=== PATIENT | male | born 1955 | race Caucasian/White ===

== ENCOUNTER 2017-04-07 08:21 | Inpatient (IN) | payer MEDICARE ==
[~2017-04-07] VITALS: Ht 175.3 cm; Wt 100.5 kg
[~2017-04-07 08:21] MED LIST: ASPI-621 PO; ASPI325T80 PO; CARV12.52 PO; CARV3.122 PO; CINA30TA2 PO; CYCL5TAB PO; DOCU-131 PO; FLAX100029 PO; GABA300C10 PO; HYDR-3307 PO; IBUP-11 PO; LACT10SO28 PO; LANT1000 PO; METO25TA35 PO; METO50TA82 PO; MULT-31 PO; OMEG-120 PO; ROPI1TAB PO; SEVE800T8 PO; SIMV20TA3 PO; WARF5TAB PO-COUM
[2017-04-07 09:41] LABS: TROPONIN I 0.888 ng/mL (0.000-0.045)
[2017-04-07] MEDS ORDERED: SODIUM CHLORIDE FLUSH 10ML SYR IVF PRN (10:30)
[2017-04-07] MEDS: ENOXAPARIN 30 MG/0.3 ML SQ SCH (11:30)
[2017-04-07] MEDS: SEVELAMER 800MG TABLET PO SCH ×2 (12:00→17:57)
[2017-04-07] MEDS ORDERED: LACTULOSE 10 GM/15 ML UDC PO PRN (12:00)
[2017-04-07 12:13] LABS: MEAN CORPUSCULAR HEMOGLOBIN 29.7 pg (27.5-34.5); MEAN CORPUSCULAR HGB CONC 33.1 g/dL (33.2-36.2); MEAN CORPUSCULAR VOLUME 89.7 fL (81-97); MEAN PLATELET VOLUME 7.9 fL (7.4-10.4); PLATELET COUNT 227 x10^3/uL (130-400); RED BLOOD COUNT 3.31 x10^6/uL (4.38-5.82); RED CELL DISTRIBUTION WIDTH 15.8 % (9.4-14.8)
[2017-04-07 12:26] LABS: ANION GAP 10 mmol/L (5-15); CALCIUM 8.6 mg/dL (8.5-10.1); CHLORIDE 94 mmol/L (98-107); CREATININE 8.44 mg/dL (0.7-1.3)
[2017-04-07 12:33] LABS: TROPONIN I 0.986 ng/mL (0.000-0.045)
[2017-04-07 12:55] LABS: BASOPHILS # (AUTO) 0.05 x10^3/uL (0-0.1); BASOPHILS % (AUTO) 0 % (0-1); EOSINOPHILS # (AUTO) 0.06 x10^3/uL (0-0.4); EOSINOPHILS % (AUTO) 0 % (1-7); LYMPHOCYTES # (AUTO) 1.04 x10^3/uL (1-3.4); LYMPHOCYTES % (AUTO) 7 % (22-44); MD SCAN; MONOCYTES # (AUTO) 1.47 x10^3/uL (0.2-0.8); MONOCYTES % (AUTO) 10 % (2-9); NEUTROPHILS # (AUTO) 12.17 x10^3/uL (1.8-6.8); NEUTROPHILS % (AUTO) 82 % (42-75)
[2017-04-07] MEDS: HYDROcodone/APAP 5/325 TABLET PO PRN ×3 (15:31→22:42)
[2017-04-07 16:23] LABS: INTERNATIONAL NORMALIZED RATIO 1.13 (0.93-1.1); PROTHROMBIN TIME 11.6 Seconds (9.6-11.5)
[2017-04-07 17:05] VITALS: BP 107/71
[2017-04-07] MEDS ORDERED: WARFARIN 7.5 MG TABLET PO-COUM ONE (18:00)
[2017-04-07 20:37] VITALS: BP 118/81
[2017-04-07] MEDS: SIMVASTATIN 20 MG TABLET PO SCH (20:40)
[2017-04-07] MEDS: GABAPENTIN 300 MG CAPSULE PO SCH (20:40)
[2017-04-07] MEDS: ROPINIROLE 1MG TABLET PO SCH (20:40)
[2017-04-08 00:35] VITALS: BP 141/73
[2017-04-08] MEDS: HYDROcodone/APAP 5/325 TABLET PO PRN ×6 (02:01→19:37)
[2017-04-08 05:38] LABS: BASOPHILS # (AUTO) 0.04 x10^3/uL (0-0.1); BASOPHILS % (AUTO) 0 % (0-1); EOSINOPHILS # (AUTO) 0.11 x10^3/uL (0-0.4); EOSINOPHILS % (AUTO) 1 % (1-7); LYMPHOCYTES # (AUTO) 0.87 x10^3/uL (1-3.4); LYMPHOCYTES % (AUTO) 7 % (22-44); MD NO; MEAN CORPUSCULAR HEMOGLOBIN 29.6 pg (27.5-34.5); MEAN CORPUSCULAR HGB CONC 32.9 g/dL (33.2-36.2); MEAN CORPUSCULAR VOLUME 90.2 fL (81-97); MEAN PLATELET VOLUME 7.7 fL (7.4-10.4); MONOCYTES # (AUTO) 1.21 x10^3/uL (0.2-0.8); MONOCYTES % (AUTO) 10 % (2-9); NEUTROPHILS # (AUTO) 9.98 x10^3/uL (1.8-6.8); NEUTROPHILS % (AUTO) 82 % (42-75); PLATELET COUNT 230 x10^3/uL (130-400); RED BLOOD COUNT 3.71 x10^6/uL (4.38-5.82); RED CELL DISTRIBUTION WIDTH 15.5 % (9.4-14.8)
[2017-04-08 05:44] LABS: INTERNATIONAL NORMALIZED RATIO 1.13 (0.93-1.1); PROTHROMBIN TIME 11.6 Seconds (9.6-11.5)
[2017-04-08 05:51] LABS: ALBUMIN 3.1 g/dL (3.4-5.0); ANION GAP 9 mmol/L (5-15); CHLORIDE 95 mmol/L (98-107)
[2017-04-08 05:56] LABS: ALANINE AMINOTRANSFERASE 24 U/L (12-78); ALKALINE PHOSPHATASE 125 U/L (45-117); BILIRUBIN,TOTAL 0.7 mg/dL (0.2-1.0); CREATININE 6.46 mg/dL (0.7-1.3); TOTAL PROTEIN 7.8 g/dL (6.4-8.2)
[2017-04-08 07:35] VITALS: BP 123/66
[2017-04-08] MEDS ORDERED: MULTIVITAMINS/MINERALS TABLET PO SCH (09:00)
[2017-04-08] MEDS: SEVELAMER 800MG TABLET PO SCH ×3 (09:31→17:47)
[2017-04-08] MEDS: DOCUSATE 100 MG CAPSULE PO SCH (10:02)
[2017-04-08] MEDS: CINACALCET 30 MG TABLET PO SCH (10:02)
[2017-04-08] MEDS: MULTIVITAMINS/MINERALS TABLET PO SCH (10:02)
[2017-04-08] MEDS: ASPIRIN 81 MG TABLET EC PO SCH (10:02)
[2017-04-08] MEDS: ENOXAPARIN 30 MG/0.3 ML SQ SCH (10:03)
[2017-04-08] MEDS ORDERED: NEOSPORIN OINT. PKT 1 PACKET TP PRN (13:30)
[2017-04-08 14:17] VITALS: BP 90/59
[2017-04-08] MEDS ORDERED: SODIUM CHLORIDE 0.9% 1,000 ML IV SCH (14:30)
[2017-04-08 14:52] LABS: BASOPHILS # (AUTO) 0.04 x10^3/uL (0-0.1); BASOPHILS % (AUTO) 0 % (0-1); EOSINOPHILS # (AUTO) 0.14 x10^3/uL (0-0.4); EOSINOPHILS % (AUTO) 1 % (1-7); LYMPHOCYTES # (AUTO) 0.76 x10^3/uL (1-3.4); LYMPHOCYTES % (AUTO) 6 % (22-44); MD NO; MEAN CORPUSCULAR HEMOGLOBIN 29.6 pg (27.5-34.5); MEAN CORPUSCULAR HGB CONC 32.8 g/dL (33.2-36.2); MEAN CORPUSCULAR VOLUME 90.4 fL (81-97); MEAN PLATELET VOLUME 7.4 fL (7.4-10.4); MONOCYTES # (AUTO) 1.15 x10^3/uL (0.2-0.8); MONOCYTES % (AUTO) 10 % (2-9); NEUTROPHILS # (AUTO) 9.76 x10^3/uL (1.8-6.8); NEUTROPHILS % (AUTO) 82 % (42-75); PLATELET COUNT 232 x10^3/uL (130-400); RED BLOOD COUNT 3.65 x10^6/uL (4.38-5.82); RED CELL DISTRIBUTION WIDTH 16.1 % (9.4-14.8)
[2017-04-08 15:02] LABS: ANION GAP 8 mmol/L (5-15); CALCIUM 9.2 mg/dL (8.5-10.1); CHLORIDE 93 mmol/L (98-107); CREATININE 7.19 mg/dL (0.7-1.3)
[2017-04-08] MEDS: SODIUM CHLORIDE 0.9% 1,000 ML IV SCH (15:26)
[2017-04-08 16:24] VITALS: BP 124/82
[2017-04-08 16:35] LABS: MICROSCOPIC AUTO
[2017-04-08] MEDS ORDERED: CEFTRIAXONE PMX 2GM/50ML 50 ML IV SCH (17:00)
[2017-04-08] MEDS ORDERED: WARFARIN 10 MG TABLET PO-COUM ONE (18:00)
[2017-04-08 19:33] VITALS: BP 99/67
[2017-04-08] MEDS: GABAPENTIN 300 MG CAPSULE PO SCH (19:38)
[2017-04-08] MEDS: ROPINIROLE 1MG TABLET PO SCH (19:38)
[2017-04-08] MEDS: SIMVASTATIN 20 MG TABLET PO SCH (19:38)
[2017-04-09] VITALS (10 sets, daily range): BP systolic 74–138; BP diastolic 55–111
[2017-04-09] MEDS: HYDROcodone/APAP 5/325 TABLET PO PRN ×5 (01:16→20:40)
[2017-04-09] MEDS ORDERED: SODIUM CHLORIDE 0.9%, 500ML IVBOLUS ONE (03:00)
[2017-04-09 04:40] LABS: BASOPHILS # (AUTO) 0.06 x10^3/uL (0-0.1); BASOPHILS % (AUTO) 0 % (0-1); EOSINOPHILS # (AUTO) 0.12 x10^3/uL (0-0.4); EOSINOPHILS % (AUTO) 1 % (1-7); LYMPHOCYTES % (AUTO) 4 % (22-44); MD NO; MEAN CORPUSCULAR HEMOGLOBIN 29.3 pg (27.5-34.5); MEAN CORPUSCULAR HGB CONC 32.9 g/dL (33.2-36.2); MEAN PLATELET VOLUME 8.1 fL (7.4-10.4); MONOCYTES # (AUTO) 1.16 x10^3/uL (0.2-0.8); MONOCYTES % (AUTO) 8 % (2-9); NEUTROPHILS # (AUTO) 12.67 x10^3/uL (1.8-6.8); NEUTROPHILS % (AUTO) 87 % (42-75); PLATELET COUNT 226 x10^3/uL (130-400); RED BLOOD COUNT 3.47 x10^6/uL (4.38-5.82); RED CELL DISTRIBUTION WIDTH 15.9 % (9.4-14.8)
[2017-04-09 04:43] LABS: INTERNATIONAL NORMALIZED RATIO 1.34 (0.93-1.1); PROTHROMBIN TIME 13.7 Seconds (9.6-11.5)
[2017-04-09 04:50] LABS: ALANINE AMINOTRANSFERASE 21 U/L (12-78); ALBUMIN 2.7 g/dL (3.4-5.0); ANION GAP 10 mmol/L (5-15); CALCIUM 9.3 mg/dL (8.5-10.1); CHLORIDE 94 mmol/L (98-107); CREATININE 7.57 mg/dL (0.7-1.3)
[2017-04-09 04:52] LABS: IRON LEVEL 18 mcg/dL (65-175)
[2017-04-09 04:53] LABS: ALKALINE PHOSPHATASE 106 U/L (45-117); BILIRUBIN,TOTAL 0.7 mg/dL (0.2-1.0); TOTAL PROTEIN 7.1 g/dL (6.4-8.2)
[2017-04-09 04:54] LABS: % IRON SATURATION 10 % (20-55); TOTAL IRON BINDING CAPACITY 182 mcg/dL (250-450)
[2017-04-09] MEDS: DOCUSATE 100 MG CAPSULE PO SCH (08:53)
[2017-04-09] MEDS: MULTIVITAMINS/MINERALS TABLET PO SCH (08:53)
[2017-04-09] MEDS: ASPIRIN 81 MG TABLET EC PO SCH (08:53)
[2017-04-09] MEDS: SEVELAMER 800MG TABLET PO SCH ×3 (08:53→17:51)
[2017-04-09] MEDS: CINACALCET 30 MG TABLET PO SCH (08:53)
[2017-04-09] MEDS: ENOXAPARIN 30 MG/0.3 ML SQ SCH (08:54)
[2017-04-09] MEDS ORDERED: PHARMACOKINETIC MONITORING MC PRN (10:00)
[2017-04-09] MEDS ORDERED: VANCOMYCIN PER PHARMACY MC PRN (10:00)
[2017-04-09 10:17] LABS: HCT (SEDRATE) 30.1 % (39.2-51.8)
[2017-04-09] MEDS: CEFEPIME 2 GM in DEXTROSE 5% 100 ML IV SCH (10:28)
[2017-04-09] MEDS ORDERED: VANCOMYCIN 2,000 MG in SODIUM CHLORIDE 0.9% 500 ML IV ONE (11:00)
[2017-04-09] MEDS ORDERED: ACETAMINOPHEN 325 MG TABLET ONE (12:32)
[2017-04-09] MEDS: ACETAMINOPHEN 325 MG TABLET PO PRN (12:38)
[2017-04-09] MEDS: OXYcodone IR 5MG TABLET PO PRN (16:41)
[2017-04-09] MEDS: MORPHINE SULFATE 4 MG/ML, 1ML IVPush PRN (17:51)
[2017-04-09] MEDS ORDERED: WARFARIN 10 MG TABLET PO-COUM ONE (18:00)
[2017-04-09] MEDS: ROPINIROLE 1MG TABLET PO SCH (20:41)
[2017-04-09] MEDS: SIMVASTATIN 20 MG TABLET PO SCH (20:41)
[2017-04-09] MEDS: GABAPENTIN 300 MG CAPSULE PO SCH (20:41)
[2017-04-10 00:56] VITALS: BP 121/81
[2017-04-10] MEDS: HYDROcodone/APAP 5/325 TABLET PO PRN ×5 (01:01→17:02)
[2017-04-10] MEDS: SODIUM CHLORIDE 0.9% 1,000 ML IV SCH (03:50)
[2017-04-10 05:57] LABS: INTERNATIONAL NORMALIZED RATIO 3.47 (0.93-1.1); PROTHROMBIN TIME 34.9 Seconds (9.6-11.5)
[2017-04-10 06:06] LABS: CHLORIDE 96 mmol/L (98-107)
[2017-04-10 06:34] LABS: ANION GAP 9 mmol/L (5-15); CALCIUM 9.6 mg/dL (8.5-10.1)
[2017-04-10 06:45] LABS: MEAN CORPUSCULAR HEMOGLOBIN 29.7 pg (27.5-34.5); MEAN CORPUSCULAR HGB CONC 33.1 g/dL (33.2-36.2); MEAN CORPUSCULAR VOLUME 89.9 fL (81-97); MEAN PLATELET VOLUME 8.1 fL (7.4-10.4); PLATELET COUNT 214 x10^3/uL (130-400); RED CELL DISTRIBUTION WIDTH 15.6 % (9.4-14.8)
[2017-04-10 07:18] LABS: BASOPHILS # (AUTO) 0.03 x10^3/uL (0-0.1); BASOPHILS % (AUTO) 0 % (0-1); EOSINOPHILS # (AUTO) 0.13 x10^3/uL (0-0.4); EOSINOPHILS % (AUTO) 1 % (1-7); LYMPHOCYTES # (AUTO) 1.24 x10^3/uL (1-3.4); LYMPHOCYTES % (AUTO) 8 % (22-44); MD SCAN; MONOCYTES # (AUTO) 1.45 x10^3/uL (0.2-0.8); MONOCYTES % (AUTO) 10 % (2-9); NEUTROPHILS # (AUTO) 12.45 x10^3/uL (1.8-6.8); NEUTROPHILS % (AUTO) 81 % (42-75)
[2017-04-10] MEDS: ENOXAPARIN 30 MG/0.3 ML SQ SCH (09:00)
[2017-04-10 09:06] VITALS: BP 101/64
[2017-04-10] MEDS: MULTIVITAMINS/MINERALS TABLET PO SCH (09:08)
[2017-04-10] MEDS: CYCLOBENZAPRINE 10 MG TABLET PO PRN (09:09)
[2017-04-10] MEDS: ASPIRIN 81 MG TABLET EC PO SCH (09:09)
[2017-04-10] MEDS: CINACALCET 30 MG TABLET PO SCH (09:09)
[2017-04-10] MEDS: DOCUSATE 100 MG CAPSULE PO SCH (09:09)
[2017-04-10] MEDS: SEVELAMER 800MG TABLET PO SCH ×3 (09:09→17:02)
[2017-04-10] MEDS: CEFEPIME 2 GM in DEXTROSE 5% 100 ML IV SCH (10:30)
[2017-04-10 16:57] VITALS: BP 110/75
[2017-04-10] MEDS ORDERED: WARFARIN 5 MG TABLET PO-COUM ONE (18:00)
[2017-04-10 19:29] VITALS: BP 128/82
[2017-04-10] MEDS: GABAPENTIN 300 MG CAPSULE PO SCH (20:40)
[2017-04-10] MEDS: SIMVASTATIN 20 MG TABLET PO SCH (20:40)
[2017-04-10] MEDS: ROPINIROLE 1MG TABLET PO SCH (20:40)
[2017-04-11 01:28] VITALS: BP 118/78
[2017-04-11] MEDS: HYDROcodone/APAP 5/325 TABLET PO PRN ×5 (01:51→18:11)
[2017-04-11 06:08] LABS: BASOPHILS # (AUTO) 0.05 x10^3/uL (0-0.1); BASOPHILS % (AUTO) 0 % (0-1); EOSINOPHILS # (AUTO) 0.23 x10^3/uL (0-0.4); EOSINOPHILS % (AUTO) 1 % (1-7); LYMPHOCYTES # (AUTO) 1.13 x10^3/uL (1-3.4); LYMPHOCYTES % (AUTO) 7 % (22-44); MD NO; MEAN CORPUSCULAR HEMOGLOBIN 29.9 pg (27.5-34.5); MEAN CORPUSCULAR HGB CONC 33.4 g/dL (33.2-36.2); MEAN CORPUSCULAR VOLUME 89.3 fL (81-97); MEAN PLATELET VOLUME 7.7 fL (7.4-10.4); MONOCYTES # (AUTO) 1.39 x10^3/uL (0.2-0.8); MONOCYTES % (AUTO) 9 % (2-9); NEUTROPHILS # (AUTO) 13.38 x10^3/uL (1.8-6.8); NEUTROPHILS % (AUTO) 83 % (42-75); PLATELET COUNT 234 x10^3/uL (130-400); RED CELL DISTRIBUTION WIDTH 16.3 % (9.4-14.8)
[2017-04-11 06:22] LABS: ANION GAP 10 mmol/L (5-15); CHLORIDE 93 mmol/L (98-107)
[2017-04-11 06:31] LABS: CALCIUM 10.2 mg/dL (8.5-10.1); CREATININE 7.57 mg/dL (0.7-1.3); VANCOMYCIN,RANDOM 17.4 mcg/mL
[2017-04-11 07:45] LABS: INTERNATIONAL NORMALIZED RATIO 7.34 (0.93-1.1); PROTHROMBIN TIME 72.7 Seconds (9.6-11.5)
[2017-04-11 08:03] VITALS: BP 92/62
[2017-04-11] MEDS: CINACALCET 30 MG TABLET PO SCH (08:10)
[2017-04-11] MEDS: SEVELAMER 800MG TABLET PO SCH ×3 (08:10→18:08)
[2017-04-11] MEDS ORDERED: HEPARIN 5,000 UNITS/ML, 1ML SQ SCH (11:30)
[2017-04-11] MEDS ORDERED: PHYTONADIONE 5 MG TABLET PO ONE (12:00)
[2017-04-11] MEDS: ASPIRIN 81 MG TABLET EC PO SCH (12:51)
[2017-04-11] MEDS: DOCUSATE 100 MG CAPSULE PO SCH (12:51)
[2017-04-11] MEDS: MULTIVITAMINS/MINERALS TABLET PO SCH (12:51)
[2017-04-11] MEDS: CYCLOBENZAPRINE 10 MG TABLET PO PRN (13:28)
[2017-04-11 14:34] VITALS: BP 112/63
[2017-04-11] MEDS ORDERED: KETOROLAC 30 MG/1 ML IVPush ONE (15:30)
[2017-04-11 19:03] VITALS: BP 136/81
[2017-04-11] MEDS: SIMVASTATIN 20 MG TABLET PO SCH (20:54)
[2017-04-11] MEDS: GABAPENTIN 300 MG CAPSULE PO SCH (20:55)
[2017-04-11] MEDS: ROPINIROLE 1MG TABLET PO SCH (20:55)
[2017-04-11] MEDS ORDERED: VANCOMYCIN 2,000 MG in SODIUM CHLORIDE 0.9% 500 ML IV ONE (21:00)
[2017-04-12 01:52] VITALS: BP 97/65
[2017-04-12] MEDS: OXYcodone IR 5MG TABLET PO PRN ×2 (05:29→23:48)
[2017-04-12 06:06] LABS: INTERNATIONAL NORMALIZED RATIO 4.69 (0.93-1.1); PROTHROMBIN TIME 46.9 Seconds (9.6-11.5)
[2017-04-12 06:25] LABS: BASOPHILS # (AUTO) 0.07 x10^3/uL (0-0.1); BASOPHILS % (AUTO) 1 % (0-1); EOSINOPHILS # (AUTO) 0.33 x10^3/uL (0-0.4); EOSINOPHILS % (AUTO) 3 % (1-7); LYMPHOCYTES # (AUTO) 0.92 x10^3/uL (1-3.4); LYMPHOCYTES % (AUTO) 8 % (22-44); MD NO; MEAN CORPUSCULAR HEMOGLOBIN 29.7 pg (27.5-34.5); MEAN CORPUSCULAR VOLUME 90.1 fL (81-97); MEAN PLATELET VOLUME 8.2 fL (7.4-10.4); MONOCYTES # (AUTO) 1.15 x10^3/uL (0.2-0.8); MONOCYTES % (AUTO) 10 % (2-9); NEUTROPHILS # (AUTO) 9.12 x10^3/uL (1.8-6.8); NEUTROPHILS % (AUTO) 79 % (42-75); PLATELET COUNT 244 x10^3/uL (130-400); RED BLOOD COUNT 3.33 x10^6/uL (4.38-5.82); RED CELL DISTRIBUTION WIDTH 15.9 % (9.4-14.8)
[2017-04-12 06:34] LABS: ANION GAP 6 mmol/L (5-15); CALCIUM 9.1 mg/dL (8.5-10.1); CHLORIDE 99 mmol/L (98-107)
[2017-04-12 06:35] LABS: CREATININE 5.76 mg/dL (0.7-1.3)
[2017-04-12 08:18] VITALS: BP 94/59
[2017-04-12] MEDS: WARFARIN MECH. VALVE PROTOCOL 2.5 to 3.5 XX SCH (09:00)
[2017-04-12] MEDS: CINACALCET 30 MG TABLET PO SCH (09:17)
[2017-04-12] MEDS: DOCUSATE 100 MG CAPSULE PO SCH (09:17)
[2017-04-12] MEDS: MULTIVITAMINS/MINERALS TABLET PO SCH (09:17)
[2017-04-12] MEDS: ASPIRIN 81 MG TABLET EC PO SCH (09:17)
[2017-04-12] MEDS: SEVELAMER 800MG TABLET PO SCH ×3 (09:18→17:33)
[2017-04-12] MEDS: CYCLOBENZAPRINE 10 MG TABLET PO PRN (11:25)
[2017-04-12] MEDS: ROPINIROLE 1MG TABLET PO SCH (12:22)
[2017-04-12] MEDS: HYDROcodone/APAP 5/325 TABLET PO PRN ×2 (13:29→21:30)
[2017-04-12 13:37] VITALS: BP 124/80
[2017-04-12] MEDS ORDERED: WARFARIN 5 MG TABLET PO-COUM SCH (18:00)
[2017-04-12 18:54] VITALS: BP 124/80
[2017-04-12] MEDS: SIMVASTATIN 20 MG TABLET PO SCH (21:30)
[2017-04-12] MEDS: GABAPENTIN 300 MG CAPSULE PO SCH (21:30)
[2017-04-12] MEDS: LINEZOLID PMX 600MG/300ML 300 ML IV SCH (21:36)
[2017-04-13] MEDS: HYDROcodone/APAP 5/325 TABLET PO PRN ×4 (01:40→20:03)
[2017-04-13 02:43] VITALS: BP 113/76
[2017-04-13 05:48] LABS: INTERNATIONAL NORMALIZED RATIO 4.97 (0.93-1.1); PROTHROMBIN TIME 49.6 Seconds (9.6-11.5)
[2017-04-13 07:06] VITALS: BP 125/84
[2017-04-13] MEDS: OXYcodone IR 5MG TABLET PO PRN ×2 (07:15→17:56)
[2017-04-13] MEDS: SEVELAMER 800MG TABLET PO SCH ×4 (08:00→17:54)
[2017-04-13] MEDS: WARFARIN MECH. VALVE PROTOCOL 2.5 to 3.5 XX SCH (09:00)
[2017-04-13] MEDS ORDERED: PROPOFOL 10 MG/ML, 20ML ONE (12:35)
[2017-04-13] MEDS: CINACALCET 30 MG TABLET PO SCH (13:43)
[2017-04-13] MEDS: DOCUSATE 100 MG CAPSULE PO SCH (13:43)
[2017-04-13] MEDS: MULTIVITAMINS/MINERALS TABLET PO SCH (13:43)
[2017-04-13] MEDS: LINEZOLID PMX 600MG/300ML 300 ML IV SCH (13:43)
[2017-04-13] MEDS: ASPIRIN 81 MG TABLET EC PO SCH (13:43)
[2017-04-13 13:58] VITALS: BP 125/84
[2017-04-13] MEDS: MORPHINE SULFATE 4 MG/ML, 1ML IVPush PRN (14:48)
[2017-04-13] MEDS ORDERED: AMLO5TAB2 PO (14:53)
[2017-04-13] MEDS ORDERED: METO25TA91 PO (14:53)
[2017-04-13] MEDS ORDERED: METOPROLOL TARTRATE 25 MG TABLET PO SCH (15:00)
[2017-04-13 15:35] VITALS: BP 104/73
[2017-04-13] MEDS: METOPROLOL TARTRATE 25 MG TABLET PO SCH (17:53)
[2017-04-13 18:52] VITALS: BP 111/76
[2017-04-13] MEDS: SIMVASTATIN 20 MG TABLET PO SCH (19:55)
[2017-04-13] MEDS: GABAPENTIN 300 MG CAPSULE PO SCH (19:55)
[2017-04-13] MEDS: ROPINIROLE 1MG TABLET PO SCH (19:55)
[2017-04-14] MEDS: HYDROcodone/APAP 5/325 TABLET PO PRN ×5 (00:53→18:22)
[2017-04-14 01:51] VITALS: BP 122/80
[2017-04-14] MEDS: LINEZOLID PMX 600MG/300ML 300 ML IV SCH ×2 (02:11→13:50)
[2017-04-14 04:21] LABS: INTERNATIONAL NORMALIZED RATIO 4.19 (0.93-1.1)
[2017-04-14] MEDS: METOPROLOL TARTRATE 25 MG TABLET PO SCH ×2 (05:39→18:22)
[2017-04-14 07:10] VITALS: BP 138/85
[2017-04-14] MEDS: SEVELAMER 800MG TABLET PO SCH ×3 (08:44→18:14)
[2017-04-14] MEDS: DOCUSATE 100 MG CAPSULE PO SCH (08:44)
[2017-04-14] MEDS: WARFARIN MECH. VALVE PROTOCOL 2.5 to 3.5 XX SCH (08:44)
[2017-04-14] MEDS: CINACALCET 30 MG TABLET PO SCH (08:44)
[2017-04-14] MEDS: MULTIVITAMINS/MINERALS TABLET PO SCH (08:44)
[2017-04-14] MEDS: ASPIRIN 81 MG TABLET EC PO SCH (08:44)
[2017-04-14 13:55] VITALS: BP 112/72
[2017-04-14] MEDS ORDERED: WARFARIN 2.5 MG TABLET PO-COUM SCH (18:00)
[2017-04-14 21:18] VITALS: BP 115/78
[2017-04-14] MEDS: ROPINIROLE 1MG TABLET PO SCH (21:22)
[2017-04-14] MEDS: SIMVASTATIN 20 MG TABLET PO SCH (21:22)
[2017-04-14] MEDS: GABAPENTIN 300 MG CAPSULE PO SCH (21:22)
[2017-04-15] MEDS: HYDROcodone/APAP 5/325 TABLET PO PRN ×5 (00:24→19:52)
[2017-04-15 00:56] VITALS: BP 110/72
[2017-04-15] MEDS: LINEZOLID PMX 600MG/300ML 300 ML IV SCH ×2 (01:46→14:35)
[2017-04-15 04:52] LABS: INTERNATIONAL NORMALIZED RATIO 4.21 (0.93-1.1); PROTHROMBIN TIME 42.2 Seconds (9.6-11.5)
[2017-04-15] MEDS: METOPROLOL TARTRATE 25 MG TABLET PO SCH ×2 (05:26→17:41)
[2017-04-15 07:26] VITALS: BP 138/83
[2017-04-15] MEDS: SEVELAMER 800MG TABLET PO SCH ×4 (08:46→17:42)
[2017-04-15] MEDS: MULTIVITAMINS/MINERALS TABLET PO SCH (08:47)
[2017-04-15] MEDS: DOCUSATE 100 MG CAPSULE PO SCH (08:47)
[2017-04-15] MEDS: WARFARIN MECH. VALVE PROTOCOL 2.5 to 3.5 XX SCH (08:48)
[2017-04-15] MEDS: ASPIRIN 81 MG TABLET EC PO SCH (08:48)
[2017-04-15] MEDS: CINACALCET 30 MG TABLET PO SCH (08:48)
[2017-04-15] MEDS: CHOLECALCIFEROL 1,000 UNIT TABLET PO SCH (10:04)
[2017-04-15 12:23] VITALS: BP 121/80
[2017-04-15 17:37] VITALS: BP 108/72
[2017-04-15] MEDS: ROPINIROLE 1MG TABLET PO SCH (17:41)
[2017-04-15] MEDS: GABAPENTIN 300 MG CAPSULE PO SCH (19:52)
[2017-04-15] MEDS: SIMVASTATIN 20 MG TABLET PO SCH (19:52)
[2017-04-15 20:32] VITALS: BP 109/71
[2017-04-16] VITALS (15 sets, daily range): BP systolic 107–154; BP diastolic 36–92
[2017-04-16] MEDS: LINEZOLID PMX 600MG/300ML 300 ML IV SCH (02:07)
[2017-04-16] MEDS: HYDROcodone/APAP 5/325 TABLET PO PRN ×4 (02:07→16:25)
[2017-04-16 06:03] LABS: INTERNATIONAL NORMALIZED RATIO 3.04 (0.93-1.1); PROTHROMBIN TIME 30.9 Seconds (9.6-11.5)
[2017-04-16] MEDS: METOPROLOL TARTRATE 25 MG TABLET PO SCH ×2 (06:06→18:00)
[2017-04-16] MEDS: SEVELAMER 800MG TABLET PO SCH ×4 (08:00→20:14)
[2017-04-16] MEDS: WARFARIN MECH. VALVE PROTOCOL 2.5 to 3.5 XX SCH (08:05)
[2017-04-16] MEDS ORDERED: CEFTAROLINE 400 MG in SODIUM CHLORIDE 0.9% 100 ML IV SCH (12:00)
[2017-04-16] MEDS: DOCUSATE 100 MG CAPSULE PO SCH (13:58)
[2017-04-16] MEDS: CINACALCET 30 MG TABLET PO SCH (13:58)
[2017-04-16] MEDS: MULTIVITAMINS/MINERALS TABLET PO SCH (13:58)
[2017-04-16] MEDS: CHOLECALCIFEROL 1,000 UNIT TABLET PO SCH (13:58)
[2017-04-16] MEDS: ASPIRIN 81 MG TABLET EC PO SCH (13:58)
[2017-04-16] MEDS: SODIUM CHLORIDE 0.9% IVPB SCH (15:01)
[2017-04-16] MEDS: DAPTOMYCIN IVPB SCH (15:01)
[2017-04-16] MEDS ORDERED: SODIUM CHLORIDE 0.9%, 500ML IVBOLUS ONE (18:00)
[2017-04-16] MEDS ORDERED: SODIUM CHLORIDE 0.9% 1,000ML IVBOLUS ONE (18:00)
[2017-04-16] MEDS ORDERED: WARFARIN 5 MG TABLET PO-COUM ONE (18:00)
[2017-04-16] MEDS: HYDROmorphone 1 MG/ML, 1ML IV PRN ×2 (20:19→23:30)
[2017-04-16] MEDS: GABAPENTIN 300 MG CAPSULE PO SCH (20:20)
[2017-04-16] MEDS: ROPINIROLE 1MG TABLET PO SCH (20:20)
[2017-04-16 20:31] LABS: HEMOGRAM NOTE RECHECKED
[2017-04-16] MEDS: OXYcodone IR 5MG TABLET PO PRN (22:07)
[2017-04-17] VITALS (15 sets, daily range): BP systolic 75–134; BP diastolic 40–101
[2017-04-17] MEDS ORDERED: NOVOSEVEN RT (FACTOR VIIA) RECOMB 1,000 MCG IVPush STA (00:59)
[2017-04-17] MEDS ORDERED: ACETAMINOPHEN 325 MG TABLET PO ONE (01:30)
[2017-04-17] MEDS ORDERED: LORATADINE 10 MG TABLET PO ONE (01:30)
[2017-04-17] MEDS ORDERED: PHYTONADIONE 10 MG/ML, 1ML IM ONE (01:30)
[2017-04-17] MEDS ORDERED: DIPHENHYDRAMINE 12.5MG/5ML, 10ML UDC PO ONE (01:30)
[2017-04-17] MEDS ORDERED: DIPHENHYDRAMINE 50 MG/ML, 1ML IVPush ONE (01:30)
[2017-04-17 01:37] LABS: INTERNATIONAL NORMALIZED RATIO 2.29 (0.93-1.1); PROTHROMBIN TIME 23.4 Seconds (9.6-11.5)
[2017-04-17] MEDS ORDERED: HYDROmorphone 2 MG/ML, 1ML ONE (02:07)
[2017-04-17] MEDS ORDERED: OMNIPAQUE 350 MG/ML, 100ML BOTTLE ONE (02:48)
[2017-04-17] MEDS ORDERED: LIDOCAINE 1%, 10ML ONE (03:06)
[2017-04-17] MEDS ORDERED: FLUMAZENIL 0.1 MG/1 ML, 5ML ONE (03:24)
[2017-04-17] MEDS ORDERED: FENTANYL PF 100 MCG/2ML ONE (03:24)
[2017-04-17] MEDS ORDERED: MIDAZOLAM 1 MG/ML, 5ML ONE (03:24)
[2017-04-17] MEDS ORDERED: NALOXONE 1 MG/ML, 2ML ONE (03:24)
[2017-04-17] MEDS ORDERED: VISIPAQUE 270 MG/ML, 50ML BOTTLE ONE (04:00)
[2017-04-17] MEDS ORDERED: VISIPAQUE 270 MG/ML, 150ML BOTTLE ONE (04:00)
[2017-04-17] MEDS: METOPROLOL TARTRATE 25 MG TABLET PO SCH ×2 (06:00→18:00)
[2017-04-17] MEDS: HYDROmorphone 2 MG/ML, 1ML IV PRN (06:01)
[2017-04-17] MEDS: SEVELAMER 800MG TABLET PO SCH ×3 (08:00→16:50)
[2017-04-17] MEDS: DOCUSATE 100 MG CAPSULE PO SCH (08:15)
[2017-04-17] MEDS: ASPIRIN 81 MG TABLET EC PO SCH (08:15)
[2017-04-17] MEDS: MULTIVITAMINS/MINERALS TABLET PO SCH (08:15)
[2017-04-17] MEDS: CHOLECALCIFEROL 1,000 UNIT TABLET PO SCH (08:16)
[2017-04-17] MEDS: CINACALCET 30 MG TABLET PO SCH (08:16)
[2017-04-17 08:43] LABS: MEAN CORPUSCULAR HGB CONC 34.1 g/dL (33.2-36.2); MEAN PLATELET VOLUME 7.9 fL (7.4-10.4); PLATELET COUNT 161 x10^3/uL (130-400); RED BLOOD COUNT 3.87 x10^6/uL (4.38-5.82); RED CELL DISTRIBUTION WIDTH 16.1 % (9.4-14.8)
[2017-04-17 09:16] LABS: MD YES
[2017-04-17 09:29] LABS: ALANINE AMINOTRANSFERASE 18 U/L (12-78); ANION GAP 10 mmol/L (5-15); CALCIUM 8.1 mg/dL (8.5-10.1); CHLORIDE 96 mmol/L (98-107); CREATININE 5.61 mg/dL (0.7-1.3)
[2017-04-17] MEDS ORDERED: NOREPINEPHRINE 4 MG in SODIUM CHLORIDE 0.9% 246 ML IV PRN (09:30)
[2017-04-17 09:31] LABS: ALKALINE PHOSPHATASE 81 U/L (45-117); BILIRUBIN,TOTAL 1.6 mg/dL (0.2-1.0); TOTAL PROTEIN 6.5 g/dL (6.4-8.2)
[2017-04-17 09:34] LABS: INTERNATIONAL NORMALIZED RATIO 1.29 (0.93-1.1); PROTHROMBIN TIME 13.3 Seconds (9.6-11.5)
[2017-04-17 09:59] LABS: BAND#(MANUAL) 0.25 x10^3/uL; BANDS%(MANUAL) 1 % (0-7); LYMPH#(MANUAL) 1.26 x10^3/uL (1-3.4); LYMPHS% (MANUAL) 5 % (22-44)
[2017-04-17 10:00] LABS: MONOS#(MANUAL) 1.76 x10^3/uL (0.3-2.7); MONOS% (MANUAL) 7 % (2-9); SEGS% (MANUAL) 87 % (42-75)
[2017-04-17 10:02] LABS: <PLT MORPHOLOGY> NORMAL PLT MORPH; ANISOCYTOSIS 1+; POLYCHROMASIA 1+
[2017-04-17] MEDS ORDERED: DAPTOMYCIN 800 MG in SODIUM CHLORIDE 0.9% 100 ML IV ONE (10:30)
[2017-04-17 11:27] LABS: <PLATELET ESTIMATE> ADEQUATE
[2017-04-17] MEDS ORDERED: WARFARIN 5 MG TABLET PO-COUM ONE (18:00)
[2017-04-17] MEDS: GABAPENTIN 300 MG CAPSULE PO SCH (21:33)
[2017-04-17] MEDS: ROPINIROLE 1MG TABLET PO SCH (21:33)
[2017-04-17] MEDS: HYDROcodone/APAP 5/325 TABLET PO PRN (22:48)
[2017-04-18] MEDS: HYDROcodone/APAP 5/325 TABLET PO PRN ×5 (04:23→21:58)
[2017-04-18 04:52] LABS: INTERNATIONAL NORMALIZED RATIO 1.22 (0.93-1.1); PROTHROMBIN TIME 12.6 Seconds (9.6-11.5)
[2017-04-18 04:57] LABS: ALBUMIN 2.7 g/dL (3.4-5.0); ANION GAP 11 mmol/L (5-15); CALCIUM 8.6 mg/dL (8.5-10.1); CHLORIDE 98 mmol/L (98-107)
[2017-04-18 05:02] LABS: ALANINE AMINOTRANSFERASE 17 U/L (12-78); ALKALINE PHOSPHATASE 82 U/L (45-117); CREATININE 4.94 mg/dL (0.7-1.3); TOTAL PROTEIN 6.4 g/dL (6.4-8.2)
[2017-04-18] MEDS: METOPROLOL TARTRATE 25 MG TABLET PO SCH ×2 (06:26→18:37)
[2017-04-18] MEDS: SEVELAMER 800MG TABLET PO SCH ×3 (08:00→18:36)
[2017-04-18] MEDS: CINACALCET 30 MG TABLET PO SCH (09:00)
[2017-04-18] MEDS: MULTIVITAMINS/MINERALS TABLET PO SCH (09:00)
[2017-04-18] MEDS: CHOLECALCIFEROL 1,000 UNIT TABLET PO SCH (09:00)
[2017-04-18] MEDS: DOCUSATE 100 MG CAPSULE PO SCH (09:00)
[2017-04-18 13:05] VITALS: BP 149/91
[2017-04-18] MEDS: INSULIN ASPART 100 UNITS/ML, PEN SQ-INSULIN SCH ×2 (16:00→21:00)
[2017-04-18 20:32] VITALS: BP_SYST 85; BP_SYST 87; BP_DIAS 40; BP_DIAS 65
[2017-04-18 21:55] VITALS: BP 94/46
[2017-04-18] MEDS: ROPINIROLE 1MG TABLET PO SCH (21:58)
[2017-04-18] MEDS: GABAPENTIN 300 MG CAPSULE PO SCH (21:58)
[2017-04-18] MEDS: SODIUM CHLORIDE 0.9% IVPB SCH (21:58)
[2017-04-18] MEDS: DAPTOMYCIN IVPB SCH (21:58)
[2017-04-19 02:00] VITALS: BP 106/66
[2017-04-19] MEDS: HYDROcodone/APAP 5/325 TABLET PO PRN ×3 (02:39→21:23)
[2017-04-19] MEDS: INSULIN ASPART 100 UNITS/ML, PEN SQ-INSULIN SCH ×4 (07:00→20:28)
[2017-04-19 07:32] LABS: MEAN CORPUSCULAR HEMOGLOBIN 30.3 pg (27.5-34.5); MEAN CORPUSCULAR HGB CONC 34.1 g/dL (33.2-36.2); MEAN CORPUSCULAR VOLUME 88.9 fL (81-97); MEAN PLATELET VOLUME 7.2 fL (7.4-10.4); PLATELET COUNT 199 x10^3/uL (130-400); RED BLOOD COUNT 2.84 x10^6/uL (4.38-5.82); RED CELL DISTRIBUTION WIDTH 16.5 % (9.4-14.8)
[2017-04-19] MEDS: SEVELAMER 800MG TABLET PO SCH ×3 (08:00→17:40)
[2017-04-19] MEDS: METOPROLOL TARTRATE 25 MG TABLET PO SCH ×2 (08:00→17:47)
[2017-04-19 09:10] LABS: BASOPHILS # (AUTO) 0.04 x10^3/uL (0-0.1); BASOPHILS % (AUTO) 0 % (0-1); EOSINOPHILS # (AUTO) 0.02 x10^3/uL (0-0.4); EOSINOPHILS % (AUTO) 0 % (1-7); LYMPHOCYTES # (AUTO) 1.17 x10^3/uL (1-3.4); LYMPHOCYTES % (AUTO) 4 % (22-44); MD SCAN; MONOCYTES # (AUTO) 2.34 x10^3/uL (0.2-0.8); MONOCYTES % (AUTO) 8 % (2-9); NEUTROPHILS # (AUTO) 24.46 x10^3/uL (1.8-6.8); NEUTROPHILS % (AUTO) 87 % (42-75)
[2017-04-19] MEDS: CHOLECALCIFEROL 1,000 UNIT TABLET PO SCH (12:28)
[2017-04-19] MEDS: CINACALCET 30 MG TABLET PO SCH (12:28)
[2017-04-19] MEDS: MULTIVITAMINS/MINERALS TABLET PO SCH (12:28)
[2017-04-19] MEDS: DOCUSATE 100 MG CAPSULE PO SCH ×2 (12:28→17:39)
[2017-04-19] MEDS: NOREPINEPHRINE 4 MG in SODIUM CHLORIDE 0.9% 246 ML IV PRN ×2 (13:09→18:24)
[2017-04-19] MEDS: ROPINIROLE 1MG TABLET PO SCH (20:27)
[2017-04-19] MEDS: GABAPENTIN 300 MG CAPSULE PO SCH (20:27)
[2017-04-19] MEDS: NOREPINEPHRINE 8 MG in SODIUM CHLORIDE 0.9% 242 ML IV PRN (23:44)
[2017-04-20 01:29] LABS: MEAN CORPUSCULAR HEMOGLOBIN 30.2 pg (27.5-34.5); MEAN CORPUSCULAR HGB CONC 33.6 g/dL (33.2-36.2); MEAN CORPUSCULAR VOLUME 89.8 fL (81-97); PLATELET COUNT 248 x10^3/uL (130-400); RED BLOOD COUNT 2.81 x10^6/uL (4.38-5.82); RED CELL DISTRIBUTION WIDTH 16.5 % (9.4-14.8)
[2017-04-20] MEDS ORDERED: VASOPRESSIN 100 UNIT in SODIUM CHLORIDE 0.9% 495 ML IV PRN (01:30)
[2017-04-20 01:38] LABS: ANION GAP 12 mmol/L (5-15); CALCIUM 9.6 mg/dL (8.5-10.1); CHLORIDE 97 mmol/L (98-107); CREATININE 5.59 mg/dL (0.7-1.3)
[2017-04-20 01:42] LABS: MD YES
[2017-04-20 01:44] LABS: ANISOCYTOSIS 1+; LYMPH#(MANUAL) 1.01 x10^3/uL (1-3.4); LYMPHS% (MANUAL) 3 % (22-44); MONOS#(MANUAL) 3.02 x10^3/uL (0.3-2.7); MONOS% (MANUAL) 9 % (2-9); POLYCHROMASIA 1+; SEG#(MANUAL) 29.57 x10^3/uL (1.8-6.8); SEGS% (MANUAL) 88 % (42-75)
[2017-04-20] MEDS: HYDROcodone/APAP 5/325 TABLET PO PRN (01:45)
[2017-04-20 01:46] LABS: <PLATELET ESTIMATE> ADEQUATE; <PLT MORPHOLOGY> NORMAL PLT MORPH
[2017-04-20] MEDS: HYDROmorphone 2 MG/ML, 1ML IV PRN (02:25)
[2017-04-20] MEDS: NOREPINEPHRINE 8 MG in SODIUM CHLORIDE 0.9% 242 ML IV PRN ×2 (03:23→14:11)
[2017-04-20] MEDS: METOPROLOL TARTRATE 25 MG TABLET PO SCH ×2 (06:00→17:48)
[2017-04-20] MEDS: INSULIN ASPART 100 UNITS/ML, PEN SQ-INSULIN SCH ×4 (06:39→21:00)
[2017-04-20] MEDS: CHOLECALCIFEROL 1,000 UNIT TABLET PO SCH (09:30)
[2017-04-20] MEDS: CINACALCET 30 MG TABLET PO SCH (09:30)
[2017-04-20] MEDS: SEVELAMER 800MG TABLET PO SCH ×3 (09:30→17:48)
[2017-04-20] MEDS: MULTIVITAMINS/MINERALS TABLET PO SCH (09:30)
[2017-04-20] MEDS: ROPINIROLE 1MG TABLET PO SCH (20:25)
[2017-04-20] MEDS: GABAPENTIN 300 MG CAPSULE PO SCH (20:25)
[2017-04-20] MEDS ORDERED: ONDANSETRON 2MG/ML, 2ML ONE (20:36)
[2017-04-20] MEDS: ONDANSETRON 2MG/ML, 2ML IVPush PRN (20:41)
[2017-04-20] MEDS: CEFTAROLINE 600 MG in SODIUM CHLORIDE 0.9% 100 ML IV SCH (23:05)
[2017-04-21] MEDS: ACETAMINOPHEN 325 MG TABLET PO PRN (00:55)
[2017-04-21 04:28] VITALS: BP 54/25
[2017-04-21] MEDS: METOPROLOL TARTRATE 25 MG TABLET PO SCH ×2 (06:00→18:45)
[2017-04-21] MEDS: INSULIN ASPART 100 UNITS/ML, PEN SQ-INSULIN SCH ×4 (08:00→20:54)
[2017-04-21] MEDS: SEVELAMER 800MG TABLET PO SCH ×3 (08:40→18:30)
[2017-04-21] MEDS: CINACALCET 30 MG TABLET PO SCH (08:57)
[2017-04-21] MEDS: MULTIVITAMINS/MINERALS TABLET PO SCH (08:57)
[2017-04-21] MEDS: CHOLECALCIFEROL 1,000 UNIT TABLET PO SCH (08:57)
[2017-04-21] MEDS: DOCUSATE 100 MG CAPSULE PO SCH (08:57)
[2017-04-21] MEDS ORDERED: ALBUTEROL SULFATE 2.5 MG/3 ML ONE (17:07)
[2017-04-21 18:30] LABS: CULTURE INDICATED? YES; MICROSCOPIC INDICATED
[2017-04-21] MEDS: ROPINIROLE 1MG TABLET PO SCH (20:53)
[2017-04-21] MEDS: GABAPENTIN 300 MG CAPSULE PO SCH (20:53)
[2017-04-21] MEDS: CEFTAROLINE 600 MG in SODIUM CHLORIDE 0.9% 100 ML IV SCH (23:48)
[2017-04-22 04:41] LABS: BASOPHILS # (AUTO) 0.06 x10^3/uL (0-0.1); BASOPHILS % (AUTO) 0 % (0-1); EOSINOPHILS # (AUTO) 0.09 x10^3/uL (0-0.4); EOSINOPHILS % (AUTO) 1 % (1-7); HCT (SEDRATE) 24.4 % (39.2-51.8); LYMPHOCYTES # (AUTO) 0.85 x10^3/uL (1-3.4); LYMPHOCYTES % (AUTO) 6 % (22-44); MD NO; MEAN CORPUSCULAR HEMOGLOBIN 30.2 pg (27.5-34.5); MEAN CORPUSCULAR VOLUME 91.6 fL (81-97); MEAN PLATELET VOLUME 7.3 fL (7.4-10.4); MONOCYTES % (AUTO) 8 % (2-9); NEUTROPHILS # (AUTO) 12.55 x10^3/uL (1.8-6.8); NEUTROPHILS % (AUTO) 86 % (42-75); PLATELET COUNT 214 x10^3/uL (130-400); RED BLOOD COUNT 2.67 x10^6/uL (4.38-5.82)
[2017-04-22 04:44] LABS: ALBUMIN 2.9 g/dL (3.4-5.0); ANION GAP 9 mmol/L (5-15); CALCIUM 9.3 mg/dL (8.5-10.1); CHLORIDE 98 mmol/L (98-107)
[2017-04-22 04:52] LABS: ALANINE AMINOTRANSFERASE 27 U/L (12-78); ALKALINE PHOSPHATASE 75 U/L (45-117); BILIRUBIN,TOTAL 1.7 mg/dL (0.2-1.0); CREATININE 6.19 mg/dL (0.7-1.3); TOTAL PROTEIN 7.3 g/dL (6.4-8.2)
[2017-04-22 05:26] LABS: SEDIMENTATION RATE 57 mm/hr (0-10)
[2017-04-22] MEDS: METOPROLOL TARTRATE 25 MG TABLET PO SCH (06:00)
[2017-04-22] MEDS: INSULIN ASPART 100 UNITS/ML, PEN SQ-INSULIN SCH ×4 (07:00→21:00)
[2017-04-22] MEDS: ACETAMINOPHEN 325 MG TABLET PO PRN ×2 (08:10→23:10)
[2017-04-22] MEDS: CHOLECALCIFEROL 1,000 UNIT TABLET PO SCH (08:45)
[2017-04-22] MEDS: MULTIVITAMINS/MINERALS TABLET PO SCH (08:45)
[2017-04-22] MEDS: DOCUSATE 100 MG CAPSULE PO SCH (08:45)
[2017-04-22] MEDS: CINACALCET 30 MG TABLET PO SCH (08:45)
[2017-04-22] MEDS: SEVELAMER 800MG TABLET PO SCH ×4 (08:46→17:36)
[2017-04-22 14:18] VITALS: BP 166/80
[2017-04-22] MEDS: CARVEDILOL 3.125 MG TABLET PO SCH (17:36)
[2017-04-22 20:15] VITALS: BP 114/53
[2017-04-22] MEDS: GABAPENTIN 300 MG CAPSULE PO SCH (21:39)
[2017-04-22] MEDS: ROPINIROLE 1MG TABLET PO SCH (21:39)
[2017-04-22] MEDS: CEFTAROLINE 600 MG in SODIUM CHLORIDE 0.9% 100 ML IV SCH (23:57)
[2017-04-23] VITALS (8 sets, daily range): BP systolic 88–123; BP diastolic 30–73
[2017-04-23 05:26] LABS: MEAN CORPUSCULAR HEMOGLOBIN 30.8 pg (27.5-34.5); MEAN CORPUSCULAR HGB CONC 33.3 g/dL (33.2-36.2); MEAN CORPUSCULAR VOLUME 92.7 fL (81-97); MEAN PLATELET VOLUME 7.6 fL (7.4-10.4); PLATELET COUNT 198 x10^3/uL (130-400); RED BLOOD COUNT 2.63 x10^6/uL (4.38-5.82); RED CELL DISTRIBUTION WIDTH 17.8 % (9.4-14.8)
[2017-04-23 05:40] LABS: CHLORIDE 96 mmol/L (98-107)
[2017-04-23 05:41] LABS: ALANINE AMINOTRANSFERASE 25 U/L (12-78); ALBUMIN 2.7 g/dL (3.4-5.0); ANION GAP 10 mmol/L (5-15); CALCIUM 9.2 mg/dL (8.5-10.1); CREATININE 7.13 mg/dL (0.7-1.3)
[2017-04-23 05:43] LABS: ALKALINE PHOSPHATASE 73 U/L (45-117); BILIRUBIN,TOTAL 1.6 mg/dL (0.2-1.0); TOTAL PROTEIN 6.9 g/dL (6.4-8.2)
[2017-04-23] MEDS: CARVEDILOL 3.125 MG TABLET PO SCH (05:46)
[2017-04-23 06:03] LABS: MD YES
[2017-04-23 06:04] LABS: BAND#(MANUAL) 0.14 x10^3/uL; BANDS%(MANUAL) 1 % (0-7); LYMPH#(MANUAL) 0.85 x10^3/uL (1-3.4); LYMPHS% (MANUAL) 6 % (22-44); MONOS#(MANUAL) 0.56 x10^3/uL (0.3-2.7); MONOS% (MANUAL) 4 % (2-9); NRBC % (MANUAL) 1 % (0-1); SEG#(MANUAL) 12.55 x10^3/uL (1.8-6.8); SEGS% (MANUAL) 89 % (42-75)
[2017-04-23 06:05] LABS: ANISOCYTOSIS 1+; POLYCHROMASIA 2+
[2017-04-23 06:06] LABS: <PLATELET ESTIMATE> ADEQUATE; <PLT MORPHOLOGY> NORMAL PLT MORPH; HYPOCHROMIA 1+
[2017-04-23] MEDS: INSULIN ASPART 100 UNITS/ML, PEN SQ-INSULIN SCH ×4 (07:00→21:00)
[2017-04-23] MEDS ORDERED: ALBUMIN HUMAN 25% 50 ML IV PRN (08:00)
[2017-04-23] MEDS: CHOLECALCIFEROL 1,000 UNIT TABLET PO SCH (08:04)
[2017-04-23] MEDS: MULTIVITAMINS/MINERALS TABLET PO SCH (08:04)
[2017-04-23] MEDS: DOCUSATE 100 MG CAPSULE PO SCH (08:05)
[2017-04-23] MEDS: CINACALCET 30 MG TABLET PO SCH (08:05)
[2017-04-23] MEDS: SEVELAMER 800MG TABLET PO SCH ×3 (08:06→17:47)
[2017-04-23] MEDS: ROPINIROLE 1MG TABLET PO SCH (21:56)
[2017-04-23] MEDS: GABAPENTIN 300 MG CAPSULE PO SCH (21:56)
[2017-04-24 00:53] VITALS: BP 123/46
[2017-04-24] MEDS: CEFTAROLINE 600 MG in SODIUM CHLORIDE 0.9% 100 ML IV SCH (01:55)
[2017-04-24 05:23] LABS: ALBUMIN 2.5 g/dL (3.4-5.0); ANION GAP 8 mmol/L (5-15); CALCIUM 9.2 mg/dL (8.5-10.1); CHLORIDE 97 mmol/L (98-107)
[2017-04-24 05:28] LABS: ALANINE AMINOTRANSFERASE 26 U/L (12-78); ALKALINE PHOSPHATASE 75 U/L (45-117); BILIRUBIN,TOTAL 1.9 mg/dL (0.2-1.0); CREATININE 5.59 mg/dL (0.7-1.3); TOTAL PROTEIN 6.8 g/dL (6.4-8.2)
[2017-04-24 05:31] LABS: MEAN CORPUSCULAR HEMOGLOBIN 30.6 pg (27.5-34.5); MEAN CORPUSCULAR HGB CONC 32.6 g/dL (33.2-36.2); MEAN CORPUSCULAR VOLUME 93.8 fL (81-97); MEAN PLATELET VOLUME 7.7 fL (7.4-10.4); PLATELET COUNT 209 x10^3/uL (130-400); RED BLOOD COUNT 2.81 x10^6/uL (4.38-5.82); RED CELL DISTRIBUTION WIDTH 18.9 % (9.4-14.8)
[2017-04-24 05:51] LABS: BASOPHILS # (AUTO) 0.06 x10^3/uL (0-0.1); BASOPHILS % (AUTO) 0 % (0-1); EOSINOPHILS # (AUTO) 0.12 x10^3/uL (0-0.4); EOSINOPHILS % (AUTO) 1 % (1-7); LYMPHOCYTES # (AUTO) 0.71 x10^3/uL (1-3.4); LYMPHOCYTES % (AUTO) 5 % (22-44); MD SCAN; MONOCYTES # (AUTO) 1.27 x10^3/uL (0.2-0.8); MONOCYTES % (AUTO) 9 % (2-9); NEUTROPHILS # (AUTO) 12.47 x10^3/uL (1.8-6.8); NEUTROPHILS % (AUTO) 85 % (42-75)
[2017-04-24] MEDS: INSULIN ASPART 100 UNITS/ML, PEN SQ-INSULIN SCH ×4 (07:00→22:19)
[2017-04-24 08:23] VITALS: BP 138/56
[2017-04-24] MEDS: CINACALCET 30 MG TABLET PO SCH (09:16)
[2017-04-24] MEDS: CHOLECALCIFEROL 1,000 UNIT TABLET PO SCH (09:16)
[2017-04-24] MEDS: MULTIVITAMINS/MINERALS TABLET PO SCH (09:17)
[2017-04-24] MEDS: DOCUSATE 100 MG CAPSULE PO SCH (09:17)
[2017-04-24] MEDS: SEVELAMER 800MG TABLET PO SCH ×3 (09:18→17:44)
[2017-04-24] MEDS: ACETAMINOPHEN 325 MG TABLET PO PRN (13:40)
[2017-04-24 14:20] VITALS: BP 116/78
[2017-04-24] MEDS: FERROUS GLUCONATE 324 MG TABLET PO SCH (17:44)
[2017-04-24 20:42] VITALS: BP 98/44
[2017-04-24] MEDS: GABAPENTIN 300 MG CAPSULE PO SCH (22:19)
[2017-04-24] MEDS: ROPINIROLE 1MG TABLET PO SCH (22:19)
[2017-04-25] MEDS: CEFTAROLINE 600 MG in SODIUM CHLORIDE 0.9% 100 ML IV SCH (00:09)
[2017-04-25 01:35] VITALS: BP 120/37
[2017-04-25 05:54] LABS: MEAN CORPUSCULAR HEMOGLOBIN 30.4 pg (27.5-34.5); MEAN CORPUSCULAR HGB CONC 32.5 g/dL (33.2-36.2); MEAN CORPUSCULAR VOLUME 93.6 fL (81-97); MEAN PLATELET VOLUME 7.7 fL (7.4-10.4); PLATELET COUNT 170 x10^3/uL (130-400); RED BLOOD COUNT 2.85 x10^6/uL (4.38-5.82); RED CELL DISTRIBUTION WIDTH 19.8 % (9.4-14.8)
[2017-04-25 06:03] LABS: ALBUMIN 2.5 g/dL (3.4-5.0); ANION GAP 7 mmol/L (5-15); CHLORIDE 95 mmol/L (98-107)
[2017-04-25 06:06] LABS: ALANINE AMINOTRANSFERASE 23 U/L (12-78); ALKALINE PHOSPHATASE 91 U/L (45-117); BILIRUBIN,TOTAL 1.9 mg/dL (0.2-1.0); CREATININE 6.73 mg/dL (0.7-1.3); TOTAL PROTEIN 6.6 g/dL (6.4-8.2)
[2017-04-25 06:15] LABS: BASOPHILS # (AUTO) 0.05 x10^3/uL (0-0.1); BASOPHILS % (AUTO) 0 % (0-1); EOSINOPHILS # (AUTO) 0.26 x10^3/uL (0-0.4); EOSINOPHILS % (AUTO) 2 % (1-7); LYMPHOCYTES # (AUTO) 1.07 x10^3/uL (1-3.4); LYMPHOCYTES % (AUTO) 8 % (22-44); MD SCAN; MONOCYTES # (AUTO) 1.38 x10^3/uL (0.2-0.8); MONOCYTES % (AUTO) 10 % (2-9); NEUTROPHILS # (AUTO) 11.02 x10^3/uL (1.8-6.8); NEUTROPHILS % (AUTO) 80 % (42-75)
[2017-04-25 06:54] VITALS: BP 84/40
[2017-04-25] MEDS: INSULIN ASPART 100 UNITS/ML, PEN SQ-INSULIN SCH ×4 (07:00→22:16)
[2017-04-25] MEDS: CINACALCET 30 MG TABLET PO SCH (08:04)
[2017-04-25] MEDS: MULTIVITAMINS/MINERALS TABLET PO SCH (08:04)
[2017-04-25] MEDS: CHOLECALCIFEROL 1,000 UNIT TABLET PO SCH (08:04)
[2017-04-25] MEDS: FERROUS GLUCONATE 324 MG TABLET PO SCH ×2 (08:04→17:20)
[2017-04-25] MEDS: SEVELAMER 800MG TABLET PO SCH ×3 (08:04→17:20)
[2017-04-25] MEDS: DOCUSATE 100 MG CAPSULE PO SCH (08:04)
[2017-04-25] MEDS: ACETAMINOPHEN 325 MG TABLET PO PRN ×2 (09:19→22:22)
[2017-04-25 12:33] VITALS: BP 108/55
[2017-04-25 19:23] VITALS: BP 108/59
[2017-04-25] MEDS: GABAPENTIN 300 MG CAPSULE PO SCH (22:15)
[2017-04-25] MEDS: ROPINIROLE 1MG TABLET PO SCH (22:16)
[2017-04-26] MEDS: CEFTAROLINE 600 MG in SODIUM CHLORIDE 0.9% 100 ML IV SCH (00:16)
[2017-04-26 00:31] VITALS: BP 88/57
[2017-04-26 03:00] LABS: BASOPHILS # (AUTO) 0.03 x10^3/uL (0-0.1); BASOPHILS % (AUTO) 0 % (0-1); EOSINOPHILS # (AUTO) 0.18 x10^3/uL (0-0.4); EOSINOPHILS % (AUTO) 2 % (1-7); LYMPHOCYTES % (AUTO) 7 % (22-44); MD NO; MEAN CORPUSCULAR HEMOGLOBIN 30.2 pg (27.5-34.5); MEAN CORPUSCULAR VOLUME 91.6 fL (81-97); MEAN PLATELET VOLUME 7.6 fL (7.4-10.4); MONOCYTES # (AUTO) 1.05 x10^3/uL (0.2-0.8); MONOCYTES % (AUTO) 9 % (2-9); NEUTROPHILS # (AUTO) 9.22 x10^3/uL (1.8-6.8); NEUTROPHILS % (AUTO) 82 % (42-75); PLATELET COUNT 161 x10^3/uL (130-400); RED BLOOD COUNT 2.94 x10^6/uL (4.38-5.82); RED CELL DISTRIBUTION WIDTH 20.5 % (9.4-14.8)
[2017-04-26 03:12] LABS: ANION GAP 9 mmol/L (5-15); CHLORIDE 98 mmol/L (98-107)
[2017-04-26 08:00] VITALS: BP 126/73
[2017-04-26] MEDS: INSULIN ASPART 100 UNITS/ML, PEN SQ-INSULIN SCH ×4 (08:32→21:00)
[2017-04-26] MEDS: FERROUS GLUCONATE 324 MG TABLET PO SCH ×2 (08:55→18:06)
[2017-04-26] MEDS: SEVELAMER 800MG TABLET PO SCH ×3 (08:56→18:06)
[2017-04-26] MEDS: DOCUSATE 100 MG CAPSULE PO SCH (08:56)
[2017-04-26] MEDS: MULTIVITAMINS/MINERALS TABLET PO SCH (08:56)
[2017-04-26] MEDS: CINACALCET 30 MG TABLET PO SCH (08:57)
[2017-04-26] MEDS: CHOLECALCIFEROL 1,000 UNIT TABLET PO SCH (08:57)
[2017-04-26] MEDS: ACETAMINOPHEN 325 MG TABLET PO PRN ×2 (10:55→22:08)
[2017-04-26 14:00] VITALS: BP 95/50
[2017-04-26 19:34] VITALS: BP 154/75
[2017-04-26] MEDS: ROPINIROLE 1MG TABLET PO SCH (20:57)
[2017-04-26] MEDS: GABAPENTIN 300 MG CAPSULE PO SCH (20:58)
[2017-04-27] MEDS: CEFTAROLINE 600 MG in SODIUM CHLORIDE 0.9% 100 ML IV SCH (00:24)
[2017-04-27 01:56] VITALS: BP 129/73
[2017-04-27] MEDS: ACETAMINOPHEN 325 MG TABLET PO PRN (05:34)
[2017-04-27 05:50] LABS: BASOPHILS # (AUTO) 0.05 x10^3/uL (0-0.1); BASOPHILS % (AUTO) 1 % (0-1); EOSINOPHILS # (AUTO) 0.22 x10^3/uL (0-0.4); EOSINOPHILS % (AUTO) 2 % (1-7); LYMPHOCYTES # (AUTO) 0.83 x10^3/uL (1-3.4); LYMPHOCYTES % (AUTO) 7 % (22-44); MD NO; MEAN CORPUSCULAR HEMOGLOBIN 30.6 pg (27.5-34.5); MEAN CORPUSCULAR HGB CONC 33.2 g/dL (33.2-36.2); MEAN CORPUSCULAR VOLUME 92.1 fL (81-97); MONOCYTES # (AUTO) 1.27 x10^3/uL (0.2-0.8); MONOCYTES % (AUTO) 11 % (2-9); NEUTROPHILS # (AUTO) 9.33 x10^3/uL (1.8-6.8); NEUTROPHILS % (AUTO) 80 % (42-75); PLATELET COUNT 146 x10^3/uL (130-400); RED BLOOD COUNT 2.88 x10^6/uL (4.38-5.82); RED CELL DISTRIBUTION WIDTH 19.6 % (9.4-14.8)
[2017-04-27 06:04] LABS: ALBUMIN 2.5 g/dL (3.4-5.0); ANION GAP 11 mmol/L (5-15); CALCIUM 8.5 mg/dL (8.5-10.1); CHLORIDE 92 mmol/L (98-107)
[2017-04-27 06:10] LABS: % IRON SATURATION 14 % (20-55); ALANINE AMINOTRANSFERASE 21 U/L (12-78); ALKALINE PHOSPHATASE 108 U/L (45-117); BILIRUBIN,TOTAL 1.7 mg/dL (0.2-1.0); CREATININE 6.08 mg/dL (0.7-1.3); IRON LEVEL 29 mcg/dL (65-175); TOTAL IRON BINDING CAPACITY 212 mcg/dL (250-450); TOTAL PROTEIN 6.7 g/dL (6.4-8.2)
[2017-04-27 07:23] VITALS: BP 124/69
[2017-04-27] MEDS: INSULIN ASPART 100 UNITS/ML, PEN SQ-INSULIN SCH ×2 (08:15→13:06)
[2017-04-27] MEDS: CHOLECALCIFEROL 1,000 UNIT TABLET PO SCH (08:16)
[2017-04-27] MEDS: ROPINIROLE 1MG TABLET PO SCH (08:16)
[2017-04-27] MEDS: DOCUSATE 100 MG CAPSULE PO SCH (08:17)
[2017-04-27] MEDS: MULTIVITAMINS/MINERALS TABLET PO SCH (08:17)
[2017-04-27] MEDS: FERROUS GLUCONATE 324 MG TABLET PO SCH (08:17)
[2017-04-27] MEDS: SEVELAMER 800MG TABLET PO SCH ×2 (08:17→13:01)
[2017-04-27] MEDS: CINACALCET 30 MG TABLET PO SCH (08:17)
[2017-04-27] MEDS ORDERED: ARANESP 60 MCG/ML **ESRD SQ SCH (09:00)
[2017-04-27] MEDS ORDERED: DAPT500V6 IV (12:56)
[2017-04-27] MEDS ORDERED: NEOM1PAC TP (12:56)
[2017-04-27] MEDS ORDERED: INSU100I18 SQ-INSULIN (12:56)
[2017-04-27] MEDS ORDERED: DARB60VI SQ (12:56)
[2017-04-27] MEDS ORDERED: CHOL10003 PO (12:56)
[2017-04-27] MEDS: ONDANSETRON 2MG/ML, 2ML IVPush PRN (13:01)
[2017-04-27 14:00] VITALS: BP 105/69
== END 2017-04-27 15:18 | DRG 270 ==
LOC: ED 10:14 → EDIP 10:15 → ED 10:40 → 5SO 14:29 → CCU 04-16 23:51 → 5SO 04-18 12:47 → CCU 04-19 09:38 → 4WST 04-22 12:43
PROVIDERS: ADMIT Internal Medicine; ATTEND Family Medicine
PROC: 5A1D70Z Performance of Urinary Filtration, Intermittent, Less than 6 Hours Per Day (ICD-10-PCS; 2017-04-07)
PROC: 5A1D70Z Performance of Urinary Filtration, Intermittent, Less than 6 Hours Per Day (ICD-10-PCS; 2017-04-09)
PROC: 5A1D70Z Performance of Urinary Filtration, Intermittent, Less than 6 Hours Per Day (ICD-10-PCS; 2017-04-11)
PROC: 5A1D70Z Performance of Urinary Filtration, Intermittent, Less than 6 Hours Per Day (ICD-10-PCS; 2017-04-13)
PROC: 5A1D70Z Performance of Urinary Filtration, Intermittent, Less than 6 Hours Per Day (ICD-10-PCS; 2017-04-14)
PROC: 30233N1 Transfusion of Nonautologous Red Blood Cells into Peripheral Vein, Percutaneous Approach (ICD-10-PCS; 2017-04-16)
PROC: 5A1D70Z Performance of Urinary Filtration, Intermittent, Less than 6 Hours Per Day (ICD-10-PCS; 2017-04-16)
PROC: 04LA3DZ Occlusion of Left Renal Artery with Intraluminal Device, Percutaneous Approach (ICD-10-PCS; principal; 2017-04-17)
PROC: 30233L1 Transfusion of Nonautologous Fresh Plasma into Peripheral Vein, Percutaneous Approach (ICD-10-PCS; 2017-04-17)
PROC: 30233K1 Transfusion of Nonautologous Frozen Plasma into Peripheral Vein, Percutaneous Approach (ICD-10-PCS; 2017-04-17)
PROC: 6A550Z2 Pheresis of Platelets, Single (ICD-10-PCS; 2017-04-17)
PROC: 5A1D70Z Performance of Urinary Filtration, Intermittent, Less than 6 Hours Per Day (ICD-10-PCS; 2017-04-17)
PROC: 5A1D70Z Performance of Urinary Filtration, Intermittent, Less than 6 Hours Per Day (ICD-10-PCS; 2017-04-18)
PROC: 02HV33Z Insertion of Infusion Device into Superior Vena Cava, Percutaneous Approach (ICD-10-PCS; 2017-04-19)
PROC: B548ZZA Ultrasonography of Superior Vena Cava, Guidance (ICD-10-PCS; 2017-04-19)
PROC: 5A1D70Z Performance of Urinary Filtration, Intermittent, Less than 6 Hours Per Day (ICD-10-PCS; 2017-04-20)
PROC: 5A1D70Z Performance of Urinary Filtration, Intermittent, Less than 6 Hours Per Day (ICD-10-PCS; 2017-04-23)
PROC: 5A1D70Z Performance of Urinary Filtration, Intermittent, Less than 6 Hours Per Day (ICD-10-PCS; 2017-04-25)
PROC: 5A1D70Z Performance of Urinary Filtration, Intermittent, Less than 6 Hours Per Day (ICD-10-PCS; 2017-04-27)
DX: T82.6XXA Infection and inflammatory reaction due to cardiac valve prosthesis, initial encounter (principal); A41.1 Sepsis due to other specified staphylococcus; R65.21 Severe sepsis with septic shock; J18.9 Pneumonia, unspecified organism; D68.9 Coagulation defect, unspecified; E11.21 Type 2 diabetes mellitus with diabetic nephropathy; I12.0 Hypertensive chronic kidney disease with stage 5 chronic kidney disease or end stage renal disease; D62 Acute posthemorrhagic anemia; N18.6 End stage renal disease; I33.0 Acute and subacute infective endocarditis; E87.1 Hypo-osmolality and hyponatremia; N25.81 Secondary hyperparathyroidism of renal origin; Q21.1 Atrial septal defect; W18.30XA Fall on same level, unspecified, initial encounter; E11.22 Type 2 diabetes mellitus with diabetic chronic kidney disease; B18.2 Chronic viral hepatitis C; B95.2 Enterococcus as the cause of diseases classified elsewhere; E78.5 Hyperlipidemia, unspecified; E86.0 Dehydration; I34.0 Nonrheumatic mitral (valve) insufficiency; I35.0 Nonrheumatic aortic (valve) stenosis; I48.0 Paroxysmal atrial fibrillation; K05.6 Periodontal disease, unspecified; M48.02 Spinal stenosis, cervical region; Z66 Do not resuscitate; Z79.01 Long term (current) use of anticoagulants; Z79.82 Long term (current) use of aspirin; Y93.89 Activity, other specified; Y92.89 Other specified places as the place of occurrence of the external cause; Y99.8 Other external cause status; Z79.899 Other long term (current) drug therapy; Z87.891 Personal history of nicotine dependence; Z91.19 Patient's noncompliance with other medical treatment and regimen; Z95.3 Presence of xenogenic heart valve; Z99.2 Dependence on renal dialysis; N30.90 Cystitis, unspecified without hematuria
CPT/HCPCS: 36415; 36569; 36600; 37244; 71010; 71045; 72050; 74174; 74176; 75894; 76937; 77001; 78580; 80048; 80053; 80202; 81001; 82306; 82533; 82550; 82728; 82803; 82962; 83540; 83550; 83605; 83735; 83970; 84100; 84145; 84439; 84443; 84484; 85014; 85018; 85025; 85379; 85384; 85610; 85651; 86140; 86704; 86706; 86850; 86900; 86923; 87040; 87070; 87077; 87081; 87086; 87186; 87205; 87340; 93005; 93306; 93312; 93321; 93325; 94640; 96374; C1894; J0696; J0712; J0878; J0882; J1170; J1650; J1815; J1885; J2020; J2250; J2405; J2704; J3010; J3370; J3430; J3490; J7189; P9047; Q9966; Q9967; A9540; A9558; C1751; C1769; C1773; C9898; J2310; J7030; J7040; J7050; P9016; P9017; P9035

== ENCOUNTER 2018-02-26 15:43 | Inpatient (IN) | payer MEDICARE ==
[~2018-02-26] VITALS: Ht 175.3 cm; Wt 104.3 kg
[~2018-02-26 15:43] MED LIST changes: +AMLO5TAB7 PO; +CHOL10003 PO; +DAPT500V6 IV; +DARB60VI SQ; +INSU100I18 SQ-INSULIN; +METO25TA91 PO; +NEOM1PAC TP
[2018-02-26 16:26] LABS: BASOPHILS # (AUTO) 0.07 x10^3/uL (0-0.1); BASOPHILS % (AUTO) 1 % (0-1); EOSINOPHILS # (AUTO) 0.08 x10^3/uL (0-0.4); EOSINOPHILS % (AUTO) 1 % (1-7); LYMPHOCYTES # (AUTO) 0.87 x10^3/uL (1-3.4); LYMPHOCYTES % (AUTO) 13 % (22-44); MD NO; MEAN CORPUSCULAR HEMOGLOBIN 30.3 pg (27.5-34.5); MEAN CORPUSCULAR HGB CONC 33.1 g/dL (33.2-36.2); MEAN CORPUSCULAR VOLUME 91.7 fL (81-97); MEAN PLATELET VOLUME 8.4 fL (7.4-10.4); MONOCYTES # (AUTO) 0.64 x10^3/uL (0.2-0.8); MONOCYTES % (AUTO) 10 % (2-9); NEUTROPHILS # (AUTO) 5.12 x10^3/uL (1.8-6.8); NEUTROPHILS % (AUTO) 76 % (42-75); PLATELET COUNT 181 x10^3/uL (130-400); RED BLOOD COUNT 3.21 x10^6/uL (4.38-5.82); RED CELL DISTRIBUTION WIDTH 17.5 % (9.4-14.8)
[2018-02-26] MEDS ORDERED: SODIUM CHLORIDE FLUSH 10ML SYR IVF ONE (16:30)
[2018-02-26 16:33] LABS: ALANINE AMINOTRANSFERASE 30 U/L (12-78); ALBUMIN 3.4 g/dL (3.4-5.0); ANION GAP 16 mmol/L (5-15); CHLORIDE 87 mmol/L (98-107); CREATININE 5.74 mg/dL (0.7-1.3)
[2018-02-26 16:35] LABS: ALKALINE PHOSPHATASE 94 U/L (45-117); BILIRUBIN,TOTAL 0.7 mg/dL (0.2-1.0); TOTAL PROTEIN 7.3 g/dL (6.4-8.2)
[2018-02-26] MEDS ORDERED: CYAN500T18 PO (17:48)
[2018-02-26] MEDS ORDERED: MULT-31 PO (17:48)
[2018-02-26] MEDS ORDERED: OMEP20TA62 PO (17:48)
[2018-02-26] MEDS ORDERED: ASPI-515 PO (17:48)
[2018-02-26] MEDS ORDERED: HYDR-3307 PO (17:48)
[2018-02-26] MEDS ORDERED: CEPH-368 PO (17:48)
[2018-02-26] MEDS ORDERED: LORA10TA3 PO (17:48)
[2018-02-26] MEDS ORDERED: METO25TA35 PO (17:48)
[2018-02-26 17:49] LABS: INTERNATIONAL NORMALIZED RATIO 1.23 (0.93-1.1); PROTHROMBIN TIME 12.7 Seconds (9.6-11.5)
[2018-02-26] MEDS ORDERED: SODIUM CHLORIDE 0.9% 1,000ML IVBOLUS ONE (18:30)
[2018-02-26] MEDS ORDERED: DIPHENHYDRAMINE 50 MG/ML, 1ML ONE (19:06)
[2018-02-26] MEDS ORDERED: POLYETHYLENE GLYCOL 17 GM PACKET PO PRN (20:00)
[2018-02-26] MEDS ORDERED: HYDROcodone/APAP 10/325 MG TABLET PO PRN (20:00)
[2018-02-26] MEDS ORDERED: ONDANSETRON 2MG/ML, 2ML IVPush PRN (20:00)
[2018-02-26] MEDS ORDERED: METOPROLOL TARTRATE 25 MG TABLET PO SCH (21:00)
[2018-02-26 21:20] VITALS: BP 96/68
[2018-02-26] MEDS: SIMVASTATIN 20 MG TABLET PO SCH (21:59)
[2018-02-26] MEDS: CEPHALEXIN 500 MG CAPSULE PO SCH (22:02)
[2018-02-26] MEDS: GABAPENTIN 300 MG CAPSULE PO SCH (22:02)
[2018-02-26] MEDS: ROPINIROLE 1MG TABLET PO SCH (22:02)
[2018-02-26 22:53] VITALS: BP 96/68
[2018-02-26 23:09] VITALS: BP_SYST 80; BP_SYST 81; BP_SYST 87; BP_DIAS 51; BP_DIAS 55; BP_DIAS 61
[2018-02-27 00:39] VITALS: BP 95/58
[2018-02-27] MEDS: SODIUM CHLORIDE 0.9% 500 ML IV SCH ×4 (03:00→05:58)
[2018-02-27 05:45] LABS: BASOPHILS # (AUTO) 0.04 x10^3/uL (0-0.1); BASOPHILS % (AUTO) 1 % (0-1); EOSINOPHILS # (AUTO) 0.04 x10^3/uL (0-0.4); EOSINOPHILS % (AUTO) 1 % (1-7); LYMPHOCYTES # (AUTO) 0.87 x10^3/uL (1-3.4); LYMPHOCYTES % (AUTO) 12 % (22-44); MD NO; MEAN CORPUSCULAR HEMOGLOBIN 30.5 pg (27.5-34.5); MEAN CORPUSCULAR HGB CONC 32.9 g/dL (33.2-36.2); MEAN CORPUSCULAR VOLUME 92.7 fL (81-97); MEAN PLATELET VOLUME 8.1 fL (7.4-10.4); MONOCYTES # (AUTO) 0.91 x10^3/uL (0.2-0.8); MONOCYTES % (AUTO) 12 % (2-9); NEUTROPHILS # (AUTO) 5.61 x10^3/uL (1.8-6.8); NEUTROPHILS % (AUTO) 75 % (42-75); PLATELET COUNT 141 x10^3/uL (130-400); RED BLOOD COUNT 2.95 x10^6/uL (4.38-5.82); RED CELL DISTRIBUTION WIDTH 18.5 % (9.4-14.8)
[2018-02-27 05:52] LABS: CHLORIDE 92 mmol/L (98-107)
[2018-02-27 05:57] LABS: ALANINE AMINOTRANSFERASE 29 U/L (12-78); ALBUMIN 3.1 g/dL (3.4-5.0); ALKALINE PHOSPHATASE 87 U/L (45-117); ANION GAP 15 mmol/L (5-15); BILIRUBIN,TOTAL 0.6 mg/dL (0.2-1.0); CALCIUM 9.2 mg/dL (8.5-10.1); CHOL/HDL RATIO 2.1; CHOLESTEROL, TOTAL 75 mg/dL (140-239); CREATININE 5.91 mg/dL (0.7-1.3); HDL CHOL % 47 % (26-37); HDL CHOLESTEROL (DIRECT) 35 mg/dL (40-60); LDL CHOLESTEROL,CALCULATED 26 mg/dL (54-169); LDL/HDL RATIO 0.7 (0.5-3.0); TOTAL PROTEIN 6.6 g/dL (6.4-8.2); TRIGLYCERIDES 69 mg/dL (50-200); VLDL CHOLESTEROL 14 mg/dL (0-25)
[2018-02-27] MEDS ORDERED: NOREPINEPHRINE 4 MG in SODIUM CHLORIDE 0.9% 246 ML IV PRN (06:00)
[2018-02-27] MEDS: SEVELAMER CARBONATE 800MG TAB PO SCH ×3 (08:00→18:39)
[2018-02-27] MEDS: DOCUSATE 100 MG CAPSULE PO SCH (08:36)
[2018-02-27] MEDS: LORATADINE 10 MG TABLET PO SCH (08:36)
[2018-02-27] MEDS: MULTIVITAMINS/MINERALS TABLET PO SCH (08:36)
[2018-02-27] MEDS: CYANOCOBALAMIN 1,000 MCG TABLET PO SCH (08:37)
[2018-02-27] MEDS: CEPHALEXIN 500 MG CAPSULE PO SCH ×2 (08:37→20:02)
[2018-02-27] MEDS: CINACALCET 30 MG TABLET PO SCH (08:39)
[2018-02-27] MEDS ORDERED: PANTOPRAZOLE 80 MG in SODIUM CHLORIDE 0.9% 50 ML IV ONE (09:00)
[2018-02-27] MEDS ORDERED: ASPIRIN 81 MG TABLET EC PO SCH (09:00)
[2018-02-27] MEDS ORDERED: OMEPRAZOLE 20 MG CAPSULE.DR PO SCH (09:00)
[2018-02-27] MEDS: PANTOPRAZOLE 80 MG in SODIUM CHLORIDE 0.9% 100 ML IV SCH ×2 (09:13→18:38)
[2018-02-27] MEDS ORDERED: SODIUM CHLORIDE 0.9%, 500ML IVBOLUS ONE (18:00)
[2018-02-27] MEDS: SIMVASTATIN 20 MG TABLET PO SCH (20:02)
[2018-02-27] MEDS: GABAPENTIN 300 MG CAPSULE PO SCH (20:02)
[2018-02-27] MEDS: ROPINIROLE 1MG TABLET PO SCH (20:02)
[2018-02-27] MEDS: HYDROcodone/APAP 5/325 TABLET PO PRN (20:30)
[2018-02-28] MEDS: PANTOPRAZOLE 80 MG in SODIUM CHLORIDE 0.9% 100 ML IV SCH ×2 (04:29→16:02)
[2018-02-28 04:36] LABS: BASOPHILS # (AUTO) 0.03 x10^3/uL (0-0.1); BASOPHILS % (AUTO) 0 % (0-1); EOSINOPHILS # (AUTO) 0.12 x10^3/uL (0-0.4); EOSINOPHILS % (AUTO) 2 % (1-7); LYMPHOCYTES # (AUTO) 0.75 x10^3/uL (1-3.4); LYMPHOCYTES % (AUTO) 12 % (22-44); MD NO; MEAN CORPUSCULAR HEMOGLOBIN 30.1 pg (27.5-34.5); MEAN CORPUSCULAR VOLUME 91.3 fL (81-97); MEAN PLATELET VOLUME 7.9 fL (7.4-10.4); MONOCYTES # (AUTO) 0.63 x10^3/uL (0.2-0.8); MONOCYTES % (AUTO) 10 % (2-9); NEUTROPHILS # (AUTO) 4.57 x10^3/uL (1.8-6.8); NEUTROPHILS % (AUTO) 75 % (42-75); PLATELET COUNT 136 x10^3/uL (130-400); RED BLOOD COUNT 2.86 x10^6/uL (4.38-5.82); RED CELL DISTRIBUTION WIDTH 18.2 % (9.4-14.8)
[2018-02-28 04:44] LABS: ALBUMIN 3.1 g/dL (3.4-5.0); ANION GAP 8 mmol/L (5-15); CALCIUM 8.5 mg/dL (8.5-10.1); CHLORIDE 95 mmol/L (98-107)
[2018-02-28 04:48] LABS: ALANINE AMINOTRANSFERASE 39 U/L (12-78); ALKALINE PHOSPHATASE 77 U/L (45-117); BILIRUBIN,TOTAL 0.7 mg/dL (0.2-1.0); CREATININE 4.56 mg/dL (0.7-1.3); TOTAL PROTEIN 6.6 g/dL (6.4-8.2)
[2018-02-28] MEDS: HYDROcodone/APAP 5/325 TABLET PO PRN ×3 (05:10→18:17)
[2018-02-28] MEDS: SEVELAMER CARBONATE 800MG TAB PO SCH ×3 (08:00→18:18)
[2018-02-28] MEDS: MULTIVITAMINS/MINERALS TABLET PO SCH (08:57)
[2018-02-28] MEDS: CINACALCET 30 MG TABLET PO SCH (08:57)
[2018-02-28] MEDS: CYANOCOBALAMIN 1,000 MCG TABLET PO SCH (08:57)
[2018-02-28] MEDS: LORATADINE 10 MG TABLET PO SCH (08:57)
[2018-02-28] MEDS: CEPHALEXIN 500 MG CAPSULE PO SCH ×2 (08:58→20:31)
[2018-02-28] MEDS: DOCUSATE 100 MG CAPSULE PO SCH (08:58)
[2018-02-28] MEDS ORDERED: OMNIPAQUE 350 MG/ML, 100ML BOTTLE ONE (14:17)
[2018-02-28] MEDS: GABAPENTIN 300 MG CAPSULE PO SCH (20:31)
[2018-02-28] MEDS: ROPINIROLE 1MG TABLET PO SCH (20:31)
[2018-02-28] MEDS: SIMVASTATIN 20 MG TABLET PO SCH (20:32)
[2018-03-01] MEDS: HYDROcodone/APAP 5/325 TABLET PO PRN ×4 (00:13→18:30)
[2018-03-01] MEDS: PANTOPRAZOLE 80 MG in SODIUM CHLORIDE 0.9% 100 ML IV SCH ×2 (02:07→15:38)
[2018-03-01 05:08] LABS: CHLORIDE 95 mmol/L (98-107)
[2018-03-01 05:09] LABS: ANION GAP 6 mmol/L (5-15); CALCIUM 8.9 mg/dL (8.5-10.1)
[2018-03-01 05:13] LABS: ALANINE AMINOTRANSFERASE 34 U/L (12-78); ALKALINE PHOSPHATASE 75 U/L (45-117); BILIRUBIN,TOTAL 0.7 mg/dL (0.2-1.0); TOTAL PROTEIN 6.7 g/dL (6.4-8.2)
[2018-03-01 05:14] LABS: MEAN CORPUSCULAR HEMOGLOBIN 30.2 pg (27.5-34.5); MEAN CORPUSCULAR HGB CONC 33.1 g/dL (33.2-36.2); MEAN CORPUSCULAR VOLUME 91.3 fL (81-97); MEAN PLATELET VOLUME 7.8 fL (7.4-10.4); PLATELET COUNT 128 x10^3/uL (130-400); RED BLOOD COUNT 2.79 x10^6/uL (4.38-5.82); RED CELL DISTRIBUTION WIDTH 18.5 % (9.4-14.8)
[2018-03-01 06:01] LABS: BASOPHILS # (AUTO) 0.02 x10^3/uL (0-0.1); BASOPHILS % (AUTO) 0 % (0-1); EOSINOPHILS # (AUTO) 0.08 x10^3/uL (0-0.4); EOSINOPHILS % (AUTO) 1 % (1-7); LYMPHOCYTES # (AUTO) 0.56 x10^3/uL (1-3.4); LYMPHOCYTES % (AUTO) 9 % (22-44); MD MORPH REVIEW ONLY; MONOCYTES % (AUTO) 10 % (2-9); NEUTROPHILS # (AUTO) 4.64 x10^3/uL (1.8-6.8); NEUTROPHILS % (AUTO) 79 % (42-75)
[2018-03-01 06:14] LABS: <PLATELET ESTIMATE> ADEQUATE; <PLT MORPHOLOGY> NORMAL PLT MORPH; ANISOCYTOSIS 1+
[2018-03-01] MEDS: SEVELAMER CARBONATE 800MG TAB PO SCH ×3 (08:00→17:33)
[2018-03-01] MEDS ORDERED: hydrALAzine 20 MG/ML, 1ML IV PRN (10:30)
[2018-03-01] MEDS ORDERED: MORPHINE SULFATE 4 MG/ML, 1ML IVPush PRN (10:30)
[2018-03-01] MEDS ORDERED: LABETALOL 5MG/ML, 20ML IV PRN (10:30)
[2018-03-01] MEDS ORDERED: PROMETHAZINE 25 MG/ML, 1ML IV PRN (10:30)
[2018-03-01] MEDS ORDERED: ONDANSETRON 2MG/ML, 2ML IV PRN (10:30)
[2018-03-01] MEDS ORDERED: FENTANYL PF 100 MCG/2ML IV PRN (10:30)
[2018-03-01] MEDS ORDERED: MIDAZOLAM 1 MG/ML, 2ML ONE (10:33)
[2018-03-01] MEDS ORDERED: FENTANYL PF 100 MCG/2ML ONE (10:33)
[2018-03-01] MEDS ORDERED: PROPOFOL 10 MG/ML, 20ML ONE (10:43)
[2018-03-01] MEDS: CYANOCOBALAMIN 1,000 MCG TABLET PO SCH (13:02)
[2018-03-01] MEDS: CEPHALEXIN 500 MG CAPSULE PO SCH ×2 (13:02→21:32)
[2018-03-01] MEDS: DOCUSATE 100 MG CAPSULE PO SCH (13:02)
[2018-03-01] MEDS: MULTIVITAMINS/MINERALS TABLET PO SCH (13:03)
[2018-03-01] MEDS: MIDODRINE 5 MG TABLET PO SCH ×3 (13:03→21:32)
[2018-03-01] MEDS: LORATADINE 10 MG TABLET PO SCH (13:03)
[2018-03-01] MEDS: CINACALCET 30 MG TABLET PO SCH (13:04)
[2018-03-01] MEDS: IRON SUCROSE COMPLEX 100MG/5ML IV SCH (15:38)
[2018-03-01] MEDS: ACETAMINOPHEN 325 MG TABLET PO PRN (18:00)
[2018-03-01] MEDS ORDERED: HYDROcodone/APAP 5/325 TABLET ONE (18:29)
[2018-03-01 20:20] VITALS: BP 114/79
[2018-03-01] MEDS: SIMVASTATIN 20 MG TABLET PO SCH (21:32)
[2018-03-01] MEDS: GABAPENTIN 300 MG CAPSULE PO SCH (21:32)
[2018-03-01] MEDS: ROPINIROLE 1MG TABLET PO SCH (21:32)
[2018-03-02 01:43] VITALS: BP 94/62
[2018-03-02] MEDS: PANTOPRAZOLE 80 MG in SODIUM CHLORIDE 0.9% 100 ML IV SCH ×3 (02:08→23:52)
[2018-03-02] MEDS: HYDROcodone/APAP 5/325 TABLET PO PRN ×3 (04:51→20:35)
[2018-03-02] MEDS: LACTULOSE 10 GM/15 ML UDC PO PRN (04:51)
[2018-03-02 05:27] LABS: MEAN CORPUSCULAR HEMOGLOBIN 29.4 pg (27.5-34.5); MEAN CORPUSCULAR HGB CONC 31.7 g/dL (33.2-36.2); MEAN CORPUSCULAR VOLUME 92.7 fL (81-97); MEAN PLATELET VOLUME 7.8 fL (7.4-10.4); PLATELET COUNT 117 x10^3/uL (130-400)
[2018-03-02 06:07] LABS: BASOPHILS # (AUTO) 0.05 x10^3/uL (0-0.1); BASOPHILS % (AUTO) 1 % (0-1); EOSINOPHILS # (AUTO) 0.03 x10^3/uL (0-0.4); EOSINOPHILS % (AUTO) 0 % (1-7); LYMPHOCYTES # (AUTO) 0.69 x10^3/uL (1-3.4); LYMPHOCYTES % (AUTO) 11 % (22-44); MD SCAN; MONOCYTES # (AUTO) 0.68 x10^3/uL (0.2-0.8); MONOCYTES % (AUTO) 11 % (2-9); NEUTROPHILS # (AUTO) 4.88 x10^3/uL (1.8-6.8); NEUTROPHILS % (AUTO) 77 % (42-75)
[2018-03-02 06:47] VITALS: BP 96/62
[2018-03-02] MEDS: CYANOCOBALAMIN 1,000 MCG TABLET PO SCH (08:30)
[2018-03-02] MEDS: CINACALCET 30 MG TABLET PO SCH (08:30)
[2018-03-02] MEDS: CEPHALEXIN 500 MG CAPSULE PO SCH ×2 (08:30→20:35)
[2018-03-02] MEDS: MULTIVITAMINS/MINERALS TABLET PO SCH (08:30)
[2018-03-02] MEDS: DOCUSATE 100 MG CAPSULE PO SCH (08:30)
[2018-03-02] MEDS: SEVELAMER CARBONATE 800MG TAB PO SCH ×3 (08:30→19:32)
[2018-03-02] MEDS: LORATADINE 10 MG TABLET PO SCH (08:31)
[2018-03-02 12:19] VITALS: BP 104/70
[2018-03-02] MEDS: MIDODRINE 5 MG TABLET PO SCH ×3 (13:00→20:35)
[2018-03-02] MEDS: SIMVASTATIN 20 MG TABLET PO SCH (20:35)
[2018-03-02] MEDS: ROPINIROLE 1MG TABLET PO SCH (20:35)
[2018-03-02] MEDS: GABAPENTIN 300 MG CAPSULE PO SCH (20:35)
[2018-03-02 20:40] VITALS: BP_SYST 109; BP_SYST 93; BP_DIAS 54
[2018-03-03 02:00] VITALS: BP 87/59
[2018-03-03 02:10] VITALS: BP 102/54
[2018-03-03] MEDS: HYDROcodone/APAP 5/325 TABLET PO PRN ×3 (04:54→20:33)
[2018-03-03 05:49] LABS: MEAN CORPUSCULAR HEMOGLOBIN 29.8 pg (27.5-34.5); MEAN CORPUSCULAR HGB CONC 32.6 g/dL (33.2-36.2); MEAN CORPUSCULAR VOLUME 91.5 fL (81-97); MEAN PLATELET VOLUME 8.2 fL (7.4-10.4); PLATELET COUNT 105 x10^3/uL (130-400); RED BLOOD COUNT 2.82 x10^6/uL (4.38-5.82); RED CELL DISTRIBUTION WIDTH 18.8 % (9.4-14.8)
[2018-03-03 06:03] LABS: ALBUMIN 3.1 g/dL (3.4-5.0); ANION GAP 10 mmol/L (5-15); CALCIUM 9.1 mg/dL (8.5-10.1); CHLORIDE 94 mmol/L (98-107)
[2018-03-03 06:10] LABS: BASOPHILS # (AUTO) 0.04 x10^3/uL (0-0.1); BASOPHILS % (AUTO) 1 % (0-1); EOSINOPHILS # (AUTO) 0.08 x10^3/uL (0-0.4); EOSINOPHILS % (AUTO) 2 % (1-7); LYMPHOCYTES # (AUTO) 0.59 x10^3/uL (1-3.4); LYMPHOCYTES % (AUTO) 12 % (22-44); MD SCAN; MONOCYTES # (AUTO) 0.55 x10^3/uL (0.2-0.8); MONOCYTES % (AUTO) 11 % (2-9); NEUTROPHILS # (AUTO) 3.79 x10^3/uL (1.8-6.8); NEUTROPHILS % (AUTO) 75 % (42-75)
[2018-03-03 07:05] VITALS: BP 136/75
[2018-03-03] MEDS: SEVELAMER CARBONATE 800MG TAB PO SCH ×3 (08:00→17:28)
[2018-03-03] MEDS: CEPHALEXIN 500 MG CAPSULE PO SCH ×2 (08:17→20:32)
[2018-03-03] MEDS: MIDODRINE 5 MG TABLET PO SCH ×3 (09:00→20:33)
[2018-03-03] MEDS ORDERED: REGADENOSON 0.4 MG/5 ML SYRINGE ONE (09:10)
[2018-03-03] MEDS: MULTIVITAMINS/MINERALS TABLET PO SCH (10:41)
[2018-03-03] MEDS: DOCUSATE 100 MG CAPSULE PO SCH (10:41)
[2018-03-03] MEDS: CINACALCET 30 MG TABLET PO SCH (10:41)
[2018-03-03] MEDS: CYANOCOBALAMIN 1,000 MCG TABLET PO SCH (10:41)
[2018-03-03] MEDS: PANTOPRAZOLE 80 MG in SODIUM CHLORIDE 0.9% 100 ML IV SCH ×2 (11:07→20:44)
[2018-03-03] MEDS: LORATADINE 10 MG TABLET PO SCH (11:07)
[2018-03-03 13:17] VITALS: BP 93/64
[2018-03-03 19:37] VITALS: BP 111/74
[2018-03-03] MEDS: GABAPENTIN 300 MG CAPSULE PO SCH (20:32)
[2018-03-03] MEDS: SIMVASTATIN 20 MG TABLET PO SCH (20:33)
[2018-03-03] MEDS: ROPINIROLE 1MG TABLET PO SCH (20:33)
[2018-03-04 01:47] VITALS: BP 94/66
[2018-03-04 05:27] LABS: BASOPHILS # (AUTO) 0.03 x10^3/uL (0-0.1); BASOPHILS % (AUTO) 1 % (0-1); EOSINOPHILS # (AUTO) 0.18 x10^3/uL (0-0.4); EOSINOPHILS % (AUTO) 3 % (1-7); LYMPHOCYTES # (AUTO) 0.56 x10^3/uL (1-3.4); LYMPHOCYTES % (AUTO) 10 % (22-44); MD NO; MEAN CORPUSCULAR HGB CONC 32.9 g/dL (33.2-36.2); MEAN CORPUSCULAR VOLUME 91.1 fL (81-97); MEAN PLATELET VOLUME 8.3 fL (7.4-10.4); MONOCYTES # (AUTO) 0.53 x10^3/uL (0.2-0.8); MONOCYTES % (AUTO) 10 % (2-9); NEUTROPHILS # (AUTO) 4.16 x10^3/uL (1.8-6.8); NEUTROPHILS % (AUTO) 76 % (42-75); PLATELET COUNT 115 x10^3/uL (130-400); RED BLOOD COUNT 2.91 x10^6/uL (4.38-5.82); RED CELL DISTRIBUTION WIDTH 18.7 % (9.4-14.8)
[2018-03-04 05:36] LABS: ANION GAP 10 mmol/L (5-15); CALCIUM 8.9 mg/dL (8.5-10.1); CHLORIDE 92 mmol/L (98-107); CREATININE 5.85 mg/dL (0.7-1.3)
[2018-03-04] MEDS: HYDROcodone/APAP 5/325 TABLET PO PRN ×2 (05:38→18:26)
[2018-03-04 06:58] VITALS: BP 88/60
[2018-03-04] MEDS: PANTOPRAZOLE 80 MG in SODIUM CHLORIDE 0.9% 100 ML IV SCH (08:17)
[2018-03-04] MEDS: MULTIVITAMINS/MINERALS TABLET PO SCH (08:17)
[2018-03-04] MEDS: DOCUSATE 100 MG CAPSULE PO SCH (08:17)
[2018-03-04] MEDS: IRON SUCROSE COMPLEX 100MG/5ML IV SCH (08:17)
[2018-03-04] MEDS: CINACALCET 30 MG TABLET PO SCH (08:17)
[2018-03-04] MEDS: CYANOCOBALAMIN 1,000 MCG TABLET PO SCH (08:17)
[2018-03-04] MEDS: LORATADINE 10 MG TABLET PO SCH (08:18)
[2018-03-04] MEDS: SEVELAMER CARBONATE 800MG TAB PO SCH ×3 (08:18→18:26)
[2018-03-04] MEDS: MIDODRINE 5 MG TABLET PO SCH ×3 (08:18→20:38)
[2018-03-04] MEDS: CEPHALEXIN 500 MG CAPSULE PO SCH ×2 (08:18→20:38)
[2018-03-04] MEDS: PANTOPROZOLE 40MG TABLET PO SCH ×2 (11:28→16:46)
[2018-03-04 13:17] VITALS: BP 105/61
[2018-03-04 19:41] VITALS: BP 111/73
[2018-03-04] MEDS: ROPINIROLE 1MG TABLET PO SCH (20:38)
[2018-03-04] MEDS: SIMVASTATIN 20 MG TABLET PO SCH (20:38)
[2018-03-04] MEDS: GABAPENTIN 300 MG CAPSULE PO SCH (20:38)
[2018-03-04] MEDS: LACTULOSE 10 GM/15 ML UDC PO PRN (20:39)
[2018-03-04] MEDS: ARANESP 60 MCG/ML **ESRD SQ SCH (22:59)
[2018-03-05 02:37] VITALS: BP 93/64
[2018-03-05 05:35] LABS: BASOPHILS # (AUTO) 0.04 x10^3/uL (0-0.1); BASOPHILS % (AUTO) 1 % (0-1); EOSINOPHILS # (AUTO) 0.03 x10^3/uL (0-0.4); EOSINOPHILS % (AUTO) 1 % (1-7); LYMPHOCYTES # (AUTO) 0.49 x10^3/uL (1-3.4); LYMPHOCYTES % (AUTO) 9 % (22-44); MD NO; MEAN CORPUSCULAR HEMOGLOBIN 30.1 pg (27.5-34.5); MEAN CORPUSCULAR HGB CONC 32.8 g/dL (33.2-36.2); MEAN CORPUSCULAR VOLUME 91.9 fL (81-97); MEAN PLATELET VOLUME 7.8 fL (7.4-10.4); MONOCYTES # (AUTO) 0.54 x10^3/uL (0.2-0.8); MONOCYTES % (AUTO) 10 % (2-9); NEUTROPHILS # (AUTO) 4.49 x10^3/uL (1.8-6.8); NEUTROPHILS % (AUTO) 80 % (42-75); PLATELET COUNT 113 x10^3/uL (130-400); RED BLOOD COUNT 3.02 x10^6/uL (4.38-5.82); RED CELL DISTRIBUTION WIDTH 18.8 % (9.4-14.8)
[2018-03-05 05:46] LABS: ALBUMIN 3.4 g/dL (3.4-5.0); ANION GAP 9 mmol/L (5-15); CALCIUM 8.8 mg/dL (8.5-10.1); CHLORIDE 95 mmol/L (98-107)
[2018-03-05 05:48] LABS: CREATININE 5.07 mg/dL (0.7-1.3)
[2018-03-05 07:26] VITALS: BP 95/65
[2018-03-05] MEDS: SEVELAMER CARBONATE 800MG TAB PO SCH ×3 (08:44→16:54)
[2018-03-05] MEDS: HYDROcodone/APAP 5/325 TABLET PO PRN ×4 (08:44→21:35)
[2018-03-05] MEDS: CEPHALEXIN 500 MG CAPSULE PO SCH ×2 (08:45→20:41)
[2018-03-05] MEDS: LORATADINE 10 MG TABLET PO SCH (08:45)
[2018-03-05] MEDS: DOCUSATE 100 MG CAPSULE PO SCH (08:45)
[2018-03-05] MEDS: MULTIVITAMINS/MINERALS TABLET PO SCH (08:45)
[2018-03-05] MEDS: MIDODRINE 5 MG TABLET PO SCH ×3 (08:45→20:41)
[2018-03-05] MEDS: CYANOCOBALAMIN 1,000 MCG TABLET PO SCH (08:46)
[2018-03-05] MEDS: PANTOPROZOLE 40MG TABLET PO SCH ×2 (08:46→16:54)
[2018-03-05] MEDS: CINACALCET 30 MG TABLET PO SCH (08:46)
[2018-03-05] MEDS ORDERED: GADOBUTROL 10 MMOL/10 ML PFS ONE (12:56)
[2018-03-05] MEDS ORDERED: PHARMACOKINETIC CONSULTATION MC ONE (16:00)
[2018-03-05] MEDS ORDERED: VANCOMYCIN 2,000 MG in SODIUM CHLORIDE 0.9% 500 ML IV ONE (16:00)
[2018-03-05] MEDS ORDERED: PHARMACOKINETIC MONITORING MC PRN (16:00)
[2018-03-05] MEDS ORDERED: VANCOMYCIN PER PHARMACY MC PRN (18:00)
[2018-03-05 19:49] VITALS: BP 97/61
[2018-03-05] MEDS: CEFTRIAXONE PMX 2GM/50ML 50 ML IV SCH (20:40)
[2018-03-05] MEDS: ROPINIROLE 1MG TABLET PO SCH (20:40)
[2018-03-05] MEDS: GABAPENTIN 300 MG CAPSULE PO SCH (20:41)
[2018-03-05] MEDS: SORBITOL 70% PO SCH ×2 (20:41→20:49)
[2018-03-05] MEDS: SIMVASTATIN 20 MG TABLET PO SCH (20:41)
[2018-03-06 02:08] VITALS: BP 90/60
[2018-03-06] MEDS: HYDROcodone/APAP 5/325 TABLET PO PRN ×5 (04:08→22:51)
[2018-03-06 05:47] LABS: BASOPHILS # (AUTO) 0.07 x10^3/uL (0-0.1); BASOPHILS % (AUTO) 1 % (0-1); EOSINOPHILS # (AUTO) 0.16 x10^3/uL (0-0.4); EOSINOPHILS % (AUTO) 3 % (1-7); LYMPHOCYTES # (AUTO) 0.66 x10^3/uL (1-3.4); LYMPHOCYTES % (AUTO) 13 % (22-44); MD NO; MEAN CORPUSCULAR HEMOGLOBIN 29.4 pg (27.5-34.5); MEAN CORPUSCULAR VOLUME 91.7 fL (81-97); MONOCYTES # (AUTO) 0.58 x10^3/uL (0.2-0.8); MONOCYTES % (AUTO) 12 % (2-9); NEUTROPHILS % (AUTO) 71 % (42-75); PLATELET COUNT 122 x10^3/uL (130-400); RED BLOOD COUNT 3.08 x10^6/uL (4.38-5.82); RED CELL DISTRIBUTION WIDTH 18.6 % (9.4-14.8)
[2018-03-06 05:57] LABS: ALBUMIN 3.2 g/dL (3.4-5.0); ANION GAP 10 mmol/L (5-15); CALCIUM 8.7 mg/dL (8.5-10.1); CHLORIDE 96 mmol/L (98-107)
[2018-03-06 06:04] LABS: % IRON SATURATION 13 % (20-55); CREATININE 4.64 mg/dL (0.7-1.3); IRON LEVEL 44 mcg/dL (65-175); TOTAL IRON BINDING CAPACITY 326 mcg/dL (250-450)
[2018-03-06 07:07] VITALS: BP 108/69
[2018-03-06] MEDS: DOCUSATE 100 MG CAPSULE PO SCH (08:13)
[2018-03-06] MEDS: SEVELAMER CARBONATE 800MG TAB PO SCH ×3 (08:13→16:24)
[2018-03-06] MEDS: CYANOCOBALAMIN 1,000 MCG TABLET PO SCH (08:14)
[2018-03-06] MEDS: PANTOPROZOLE 40MG TABLET PO SCH ×2 (08:14→16:23)
[2018-03-06] MEDS: MULTIVITAMINS/MINERALS TABLET PO SCH (08:14)
[2018-03-06] MEDS: CINACALCET 30 MG TABLET PO SCH (08:14)
[2018-03-06] MEDS: CEPHALEXIN 500 MG CAPSULE PO SCH (08:14)
[2018-03-06] MEDS: MIDODRINE 5 MG TABLET PO SCH ×3 (08:14→20:17)
[2018-03-06] MEDS: LORATADINE 10 MG TABLET PO SCH (08:15)
[2018-03-06] MEDS: CEFTRIAXONE PMX 2GM/50ML 50 ML IV SCH ×2 (08:18→20:17)
[2018-03-06] MEDS: IRON SUCROSE COMPLEX 100MG/5ML IV SCH ×2 (12:00→13:13)
[2018-03-06] MEDS: SORBITOL 70% PO SCH ×3 (12:00→20:20)
[2018-03-06 13:24] VITALS: BP 109/71
[2018-03-06 20:00] VITALS: BP 94/65
[2018-03-06] MEDS: GABAPENTIN 300 MG CAPSULE PO SCH (20:17)
[2018-03-06] MEDS: ROPINIROLE 1MG TABLET PO SCH (20:17)
[2018-03-06] MEDS: SIMVASTATIN 20 MG TABLET PO SCH (20:17)
[2018-03-07] MEDS: ACETAMINOPHEN 325 MG TABLET PO PRN ×2 (00:31→23:38)
[2018-03-07 01:50] VITALS: BP 115/72
[2018-03-07] MEDS: HYDROcodone/APAP 5/325 TABLET PO PRN ×5 (02:57→21:16)
[2018-03-07 04:55] LABS: BASOPHILS # (AUTO) 0.06 x10^3/uL (0-0.1); BASOPHILS % (AUTO) 1 % (0-1); EOSINOPHILS # (AUTO) 0.14 x10^3/uL (0-0.4); EOSINOPHILS % (AUTO) 3 % (1-7); LYMPHOCYTES # (AUTO) 0.62 x10^3/uL (1-3.4); LYMPHOCYTES % (AUTO) 11 % (22-44); MD NO; MEAN CORPUSCULAR HEMOGLOBIN 28.5 pg (27.5-34.5); MEAN CORPUSCULAR HGB CONC 31.1 g/dL (33.2-36.2); MEAN CORPUSCULAR VOLUME 91.6 fL (81-97); MONOCYTES # (AUTO) 0.86 x10^3/uL (0.2-0.8); MONOCYTES % (AUTO) 16 % (2-9); NEUTROPHILS # (AUTO) 3.75 x10^3/uL (1.8-6.8); NEUTROPHILS % (AUTO) 69 % (42-75); PLATELET COUNT 112 x10^3/uL (130-400); RED BLOOD COUNT 2.78 x10^6/uL (4.38-5.82); RED CELL DISTRIBUTION WIDTH 18.6 % (9.4-14.8)
[2018-03-07 05:04] LABS: ALBUMIN 2.9 g/dL (3.4-5.0); ANION GAP 8 mmol/L (5-15); CALCIUM 8.6 mg/dL (8.5-10.1); CHLORIDE 96 mmol/L (98-107)
[2018-03-07 05:09] LABS: CREATININE 4.61 mg/dL (0.7-1.3); VANCOMYCIN,RANDOM 15.5 mcg/mL
[2018-03-07] MEDS: SEVELAMER CARBONATE 800MG TAB PO SCH ×3 (08:01→16:36)
[2018-03-07] MEDS: MULTIVITAMINS/MINERALS TABLET PO SCH (08:01)
[2018-03-07] MEDS: PANTOPROZOLE 40MG TABLET PO SCH ×2 (08:01→16:36)
[2018-03-07] MEDS: CEFTRIAXONE PMX 2GM/50ML 50 ML IV SCH (08:01)
[2018-03-07] MEDS: DOCUSATE 100 MG CAPSULE PO SCH (08:01)
[2018-03-07] MEDS: CINACALCET 30 MG TABLET PO SCH (08:01)
[2018-03-07] MEDS: CYANOCOBALAMIN 1,000 MCG TABLET PO SCH (08:01)
[2018-03-07] MEDS: MIDODRINE 5 MG TABLET PO SCH ×3 (08:01→21:17)
[2018-03-07] MEDS: SORBITOL 70% PO SCH (08:02)
[2018-03-07] MEDS: LORATADINE 10 MG TABLET PO SCH (08:03)
[2018-03-07 08:37] VITALS: BP 102/50
[2018-03-07] MEDS ORDERED: VANCOMYCIN 2,000 MG in SODIUM CHLORIDE 0.9% 500 ML IV ONE (10:30)
[2018-03-07] MEDS: IRON SUCROSE COMPLEX 100MG/5ML IV SCH (12:34)
[2018-03-07 13:38] VITALS: BP 86/51
[2018-03-07 20:00] VITALS: BP 87/57
[2018-03-07] MEDS: GABAPENTIN 300 MG CAPSULE PO SCH (21:16)
[2018-03-07] MEDS: ROPINIROLE 1MG TABLET PO SCH (21:16)
[2018-03-07] MEDS: SIMVASTATIN 20 MG TABLET PO SCH (21:17)
[2018-03-08 01:17] VITALS: BP 133/71
[2018-03-08] MEDS: HYDROcodone/APAP 5/325 TABLET PO PRN ×6 (01:22→22:05)
[2018-03-08 04:47] LABS: BASOPHILS # (AUTO) 0.07 x10^3/uL (0-0.1); BASOPHILS % (AUTO) 1 % (0-1); EOSINOPHILS # (AUTO) 0.11 x10^3/uL (0-0.4); EOSINOPHILS % (AUTO) 2 % (1-7); LYMPHOCYTES # (AUTO) 0.76 x10^3/uL (1-3.4); LYMPHOCYTES % (AUTO) 14 % (22-44); MD NO; MEAN CORPUSCULAR HGB CONC 32.7 g/dL (33.2-36.2); MEAN CORPUSCULAR VOLUME 91.7 fL (81-97); MEAN PLATELET VOLUME 8.5 fL (7.4-10.4); MONOCYTES # (AUTO) 0.69 x10^3/uL (0.2-0.8); MONOCYTES % (AUTO) 12 % (2-9); NEUTROPHILS # (AUTO) 3.95 x10^3/uL (1.8-6.8); NEUTROPHILS % (AUTO) 71 % (42-75); PLATELET COUNT 113 x10^3/uL (130-400); RED BLOOD COUNT 2.99 x10^6/uL (4.38-5.82); RED CELL DISTRIBUTION WIDTH 19.3 % (9.4-14.8)
[2018-03-08 04:58] LABS: ALBUMIN 3.1 g/dL (3.4-5.0); ANION GAP 10 mmol/L (5-15); CALCIUM 9.2 mg/dL (8.5-10.1); CHLORIDE 96 mmol/L (98-107)
[2018-03-08 05:00] LABS: CREATININE 4.62 mg/dL (0.7-1.3)
[2018-03-08 07:37] VITALS: BP 91/49
[2018-03-08] MEDS: SEVELAMER CARBONATE 800MG TAB PO SCH ×3 (08:51→16:51)
[2018-03-08] MEDS: LORATADINE 10 MG TABLET PO SCH (08:52)
[2018-03-08] MEDS: CINACALCET 30 MG TABLET PO SCH (08:52)
[2018-03-08] MEDS: MULTIVITAMINS/MINERALS TABLET PO SCH (08:52)
[2018-03-08] MEDS: PANTOPROZOLE 40MG TABLET PO SCH ×2 (08:53→16:51)
[2018-03-08] MEDS: CYANOCOBALAMIN 1,000 MCG TABLET PO SCH (08:55)
[2018-03-08] MEDS: DOCUSATE 100 MG CAPSULE PO SCH ×2 (08:56→13:27)
[2018-03-08] MEDS: MIDODRINE 5 MG TABLET PO SCH ×3 (08:59→22:05)
[2018-03-08 10:03] VITALS: BP 101/66
[2018-03-08 12:49] VITALS: BP 95/58
[2018-03-08] MEDS: IRON SUCROSE COMPLEX 100MG/5ML IV SCH (15:06)
[2018-03-08 20:00] VITALS: BP 100/67
[2018-03-08] MEDS: ROPINIROLE 1MG TABLET PO SCH (22:05)
[2018-03-08] MEDS: SIMVASTATIN 20 MG TABLET PO SCH (22:05)
[2018-03-08] MEDS: GABAPENTIN 300 MG CAPSULE PO SCH (22:05)
[2018-03-09 02:00] VITALS: BP 103/67
[2018-03-09] MEDS: HYDROcodone/APAP 5/325 TABLET PO PRN ×4 (02:00→20:56)
[2018-03-09 04:11] LABS: ALBUMIN 2.9 g/dL (3.4-5.0); ANION GAP 9 mmol/L (5-15); BASOPHILS # (AUTO) 0.06 x10^3/uL (0-0.1); BASOPHILS % (AUTO) 1 % (0-1); CALCIUM 8.7 mg/dL (8.5-10.1); CHLORIDE 94 mmol/L (98-107); CREATININE 5.76 mg/dL (0.7-1.3); EOSINOPHILS % (AUTO) 0 % (1-7); LYMPHOCYTES # (AUTO) 0.78 x10^3/uL (1-3.4); LYMPHOCYTES % (AUTO) 12 % (22-44); MD NO; MEAN CORPUSCULAR HEMOGLOBIN 28.3 pg (27.5-34.5); MEAN CORPUSCULAR HGB CONC 31.1 g/dL (33.2-36.2); MEAN CORPUSCULAR VOLUME 91.1 fL (81-97); MEAN PLATELET VOLUME 8.6 fL (7.4-10.4); MONOCYTES # (AUTO) 0.74 x10^3/uL (0.2-0.8); MONOCYTES % (AUTO) 12 % (2-9); NEUTROPHILS # (AUTO) 4.83 x10^3/uL (1.8-6.8); NEUTROPHILS % (AUTO) 75 % (42-75); PLATELET COUNT 122 x10^3/uL (130-400); RED BLOOD COUNT 2.81 x10^6/uL (4.38-5.82); RED CELL DISTRIBUTION WIDTH 18.6 % (9.4-14.8)
[2018-03-09] MEDS: MIDODRINE 5 MG TABLET PO SCH ×3 (07:28→20:35)
[2018-03-09] MEDS: PANTOPROZOLE 40MG TABLET PO SCH ×2 (07:28→16:53)
[2018-03-09 07:51] VITALS: BP 110/50
[2018-03-09] MEDS: SEVELAMER CARBONATE 800MG TAB PO SCH ×3 (09:00→16:53)
[2018-03-09] MEDS: MULTIVITAMINS/MINERALS TABLET PO SCH (09:01)
[2018-03-09] MEDS: LORATADINE 10 MG TABLET PO SCH (09:01)
[2018-03-09] MEDS: CINACALCET 30 MG TABLET PO SCH (09:01)
[2018-03-09] MEDS: DOCUSATE 100 MG CAPSULE PO SCH (09:01)
[2018-03-09] MEDS: CYANOCOBALAMIN 1,000 MCG TABLET PO SCH (09:02)
[2018-03-09] MEDS: IRON SUCROSE COMPLEX 100MG/5ML IV SCH (09:54)
[2018-03-09 13:50] VITALS: BP 88/56
[2018-03-09] MEDS ORDERED: ERTAPENEM 1 GM in SODIUM CHLORIDE 0.9% 50 ML IV SCH (15:00)
[2018-03-09] MEDS ORDERED: VANCOMYCIN PER PHARMACY MC PRN (15:00)
[2018-03-09] MEDS ORDERED: PHARMACOKINETIC CONSULTATION MC ONE (15:00)
[2018-03-09] MEDS ORDERED: PHARMACOKINETIC MONITORING MC PRN (15:00)
[2018-03-09] MEDS ORDERED: VANCOMYCIN 1,600 MG in SODIUM CHLORIDE 0.9% 250 ML IV ONE (16:00)
[2018-03-09] MEDS ORDERED: VANCOMYCIN 1,600 MG in SODIUM CHLORIDE 0.9% 250 ML IV SCH (16:00)
[2018-03-09 19:29] VITALS: BP 129/47
[2018-03-09] MEDS: GABAPENTIN 300 MG CAPSULE PO SCH (20:35)
[2018-03-09] MEDS: SIMVASTATIN 20 MG TABLET PO SCH (20:35)
[2018-03-09] MEDS: ROPINIROLE 1MG TABLET PO SCH (20:35)
[2018-03-09] MEDS: ERTAPENEM 0.5 GM in SODIUM CHLORIDE 0.9% 50 ML IV SCH (20:56)
[2018-03-10 01:06] VITALS: BP 91/50
[2018-03-10] MEDS: HYDROcodone/APAP 5/325 TABLET PO PRN ×4 (03:18→18:21)
[2018-03-10 04:01] LABS: BASOPHILS # (AUTO) 0.04 x10^3/uL (0-0.1); BASOPHILS % (AUTO) 1 % (0-1); EOSINOPHILS # (AUTO) 0.19 x10^3/uL (0-0.4); EOSINOPHILS % (AUTO) 3 % (1-7); LYMPHOCYTES % (AUTO) 13 % (22-44); MD NO; MEAN CORPUSCULAR HEMOGLOBIN 30.4 pg (27.5-34.5); MEAN CORPUSCULAR VOLUME 92.1 fL (81-97); MEAN PLATELET VOLUME 8.5 fL (7.4-10.4); MONOCYTES # (AUTO) 0.79 x10^3/uL (0.2-0.8); MONOCYTES % (AUTO) 11 % (2-9); NEUTROPHILS # (AUTO) 5.27 x10^3/uL (1.8-6.8); NEUTROPHILS % (AUTO) 73 % (42-75); PLATELET COUNT 124 x10^3/uL (130-400); RED BLOOD COUNT 2.95 x10^6/uL (4.38-5.82); RED CELL DISTRIBUTION WIDTH 19.1 % (9.4-14.8)
[2018-03-10 04:04] LABS: ALANINE AMINOTRANSFERASE 17 U/L (12-78); ALBUMIN 3.1 g/dL (3.4-5.0); ANION GAP 10 mmol/L (5-15); CALCIUM 9.3 mg/dL (8.5-10.1); CHLORIDE 94 mmol/L (98-107); CREATININE 5.21 mg/dL (0.7-1.3)
[2018-03-10 04:06] LABS: ALKALINE PHOSPHATASE 101 U/L (45-117); BILIRUBIN,TOTAL 0.5 mg/dL (0.2-1.0); TOTAL PROTEIN 6.9 g/dL (6.4-8.2)
[2018-03-10 06:44] VITALS: BP 90/58
[2018-03-10] MEDS: DOCUSATE 100 MG CAPSULE PO SCH (08:27)
[2018-03-10] MEDS: PANTOPROZOLE 40MG TABLET PO SCH ×2 (08:27→16:50)
[2018-03-10] MEDS: CINACALCET 30 MG TABLET PO SCH (08:27)
[2018-03-10] MEDS: MIDODRINE 5 MG TABLET PO SCH ×3 (08:27→20:39)
[2018-03-10] MEDS: MULTIVITAMINS/MINERALS TABLET PO SCH (08:27)
[2018-03-10] MEDS: LORATADINE 10 MG TABLET PO SCH (08:28)
[2018-03-10] MEDS: CYANOCOBALAMIN 1,000 MCG TABLET PO SCH (08:29)
[2018-03-10] MEDS: SEVELAMER CARBONATE 800MG TAB PO SCH ×3 (08:29→16:50)
[2018-03-10] MEDS ORDERED: LACTULOSE 20 GM/30 ML UDC PO PRN (09:30)
[2018-03-10] MEDS: IRON SUCROSE COMPLEX 100MG/5ML IV SCH (12:23)
[2018-03-10 13:00] VITALS: BP 109/64
[2018-03-10 20:00] VITALS: BP 100/56
[2018-03-10] MEDS: ERTAPENEM 0.5 GM in SODIUM CHLORIDE 0.9% 50 ML IV SCH (20:39)
[2018-03-10] MEDS: ROPINIROLE 1MG TABLET PO SCH (20:39)
[2018-03-10] MEDS: SIMVASTATIN 20 MG TABLET PO SCH (20:39)
[2018-03-10] MEDS: GABAPENTIN 300 MG CAPSULE PO SCH (20:40)
[2018-03-10 20:46] VITALS: BP 106/49
[2018-03-11 02:00] VITALS: BP 92/57
[2018-03-11] MEDS: HYDROcodone/APAP 5/325 TABLET PO PRN ×5 (04:20→22:44)
[2018-03-11 04:46] LABS: BASOPHILS # (AUTO) 0.15 x10^3/uL (0-0.1); BASOPHILS % (AUTO) 2 % (0-1); EOSINOPHILS # (AUTO) 0.21 x10^3/uL (0-0.4); EOSINOPHILS % (AUTO) 3 % (1-7); LYMPHOCYTES # (AUTO) 1.03 x10^3/uL (1-3.4); LYMPHOCYTES % (AUTO) 13 % (22-44); MD NO; MEAN CORPUSCULAR HGB CONC 32.6 g/dL (33.2-36.2); MEAN CORPUSCULAR VOLUME 92.2 fL (81-97); MEAN PLATELET VOLUME 8.6 fL (7.4-10.4); MONOCYTES # (AUTO) 0.81 x10^3/uL (0.2-0.8); MONOCYTES % (AUTO) 11 % (2-9); NEUTROPHILS # (AUTO) 5.47 x10^3/uL (1.8-6.8); NEUTROPHILS % (AUTO) 71 % (42-75); PLATELET COUNT 135 x10^3/uL (130-400); RED BLOOD COUNT 3.02 x10^6/uL (4.38-5.82); RED CELL DISTRIBUTION WIDTH 19.4 % (9.4-14.8)
[2018-03-11 04:58] LABS: ALANINE AMINOTRANSFERASE 15 U/L (12-78); ALBUMIN 3.1 g/dL (3.4-5.0); ANION GAP 11 mmol/L (5-15); CHLORIDE 92 mmol/L (98-107); CREATININE 6.25 mg/dL (0.7-1.3)
[2018-03-11 05:00] LABS: ALKALINE PHOSPHATASE 87 U/L (45-117); BILIRUBIN,TOTAL 0.6 mg/dL (0.2-1.0); TOTAL PROTEIN 7.1 g/dL (6.4-8.2); VANCOMYCIN,RANDOM 34.5 mcg/mL
[2018-03-11 06:46] VITALS: BP 94/53
[2018-03-11] MEDS: MULTIVITAMINS/MINERALS TABLET PO SCH (07:40)
[2018-03-11] MEDS: PANTOPROZOLE 40MG TABLET PO SCH ×2 (07:40→20:13)
[2018-03-11] MEDS: SEVELAMER CARBONATE 800MG TAB PO SCH ×3 (07:40→18:35)
[2018-03-11] MEDS: MIDODRINE 5 MG TABLET PO SCH ×3 (07:40→20:14)
[2018-03-11] MEDS: CINACALCET 30 MG TABLET PO SCH (07:40)
[2018-03-11] MEDS: LORATADINE 10 MG TABLET PO SCH (07:41)
[2018-03-11] MEDS: DOCUSATE 100 MG CAPSULE PO SCH (07:41)
[2018-03-11] MEDS: CYANOCOBALAMIN 1,000 MCG TABLET PO SCH (07:41)
[2018-03-11] MEDS: ARANESP 60 MCG/ML **ESRD SQ SCH (10:44)
[2018-03-11 12:33] VITALS: BP 97/61
[2018-03-11] MEDS ORDERED: SEVE800T8 PO (16:54)
[2018-03-11] MEDS ORDERED: PANT40TA5 PO (16:54)
[2018-03-11] MEDS ORDERED: MIDO10TA PO (16:54)
[2018-03-11] MEDS ORDERED: DARB60VI SQ (16:54)
[2018-03-11] MEDS ORDERED: VANC1PLA17 IV (17:02)
[2018-03-11 19:56] VITALS: BP 125/63
[2018-03-11] MEDS: ROPINIROLE 1MG TABLET PO SCH (20:12)
[2018-03-11] MEDS: ERTAPENEM 0.5 GM in SODIUM CHLORIDE 0.9% 50 ML IV SCH (20:12)
[2018-03-11] MEDS: GABAPENTIN 300 MG CAPSULE PO SCH (20:14)
[2018-03-11] MEDS: SIMVASTATIN 20 MG TABLET PO SCH (20:14)
[2018-03-12 02:30] VITALS: BP 130/59
[2018-03-12 04:17] VITALS: BP 130/59
[2018-03-12] MEDS: HYDROcodone/APAP 5/325 TABLET PO PRN ×2 (04:25→08:53)
[2018-03-12 05:42] LABS: BASOPHILS # (AUTO) 0.04 x10^3/uL (0-0.1); BASOPHILS % (AUTO) 1 % (0-1); EOSINOPHILS # (AUTO) 0.12 x10^3/uL (0-0.4); EOSINOPHILS % (AUTO) 2 % (1-7); LYMPHOCYTES # (AUTO) 0.81 x10^3/uL (1-3.4); LYMPHOCYTES % (AUTO) 13 % (22-44); MD NO; MEAN CORPUSCULAR HEMOGLOBIN 30.3 pg (27.5-34.5); MEAN CORPUSCULAR HGB CONC 33.1 g/dL (33.2-36.2); MEAN CORPUSCULAR VOLUME 91.6 fL (81-97); MEAN PLATELET VOLUME 8.5 fL (7.4-10.4); MONOCYTES # (AUTO) 0.71 x10^3/uL (0.2-0.8); MONOCYTES % (AUTO) 12 % (2-9); NEUTROPHILS # (AUTO) 4.35 x10^3/uL (1.8-6.8); NEUTROPHILS % (AUTO) 72 % (42-75); PLATELET COUNT 126 x10^3/uL (130-400); RED BLOOD COUNT 2.95 x10^6/uL (4.38-5.82); RED CELL DISTRIBUTION WIDTH 19.1 % (9.4-14.8)
[2018-03-12 05:47] LABS: ALANINE AMINOTRANSFERASE 16 U/L (12-78); ANION GAP 6 mmol/L (5-15); CALCIUM 8.1 mg/dL (8.5-10.1); CHLORIDE 93 mmol/L (98-107); CREATININE 5.02 mg/dL (0.7-1.3)
[2018-03-12 05:50] LABS: ALKALINE PHOSPHATASE 106 U/L (45-117); BILIRUBIN,TOTAL 0.5 mg/dL (0.2-1.0); TOTAL PROTEIN 6.8 g/dL (6.4-8.2)
[2018-03-12] MEDS: LORATADINE 10 MG TABLET PO SCH (07:20)
[2018-03-12] MEDS: PANTOPROZOLE 40MG TABLET PO SCH (07:26)
[2018-03-12] MEDS: CINACALCET 30 MG TABLET PO SCH (07:26)
[2018-03-12] MEDS: MIDODRINE 5 MG TABLET PO SCH (07:27)
[2018-03-12] MEDS: DOCUSATE 100 MG CAPSULE PO SCH (07:27)
[2018-03-12] MEDS: MULTIVITAMINS/MINERALS TABLET PO SCH (07:27)
[2018-03-12] MEDS: SEVELAMER CARBONATE 800MG TAB PO SCH ×2 (07:27→12:00)
[2018-03-12] MEDS: CYANOCOBALAMIN 1,000 MCG TABLET PO SCH (07:27)
[2018-03-12 07:57] VITALS: BP 101/66
[2018-03-12] MEDS ORDERED: LEVO500T8 PO (11:46)
[2018-03-12] MEDS ORDERED: SEVE800T8 PO (11:47)
[2018-03-12] MEDS ORDERED: LEVOFLOXACIN 750 MG TABLET PO ONE (12:00)
[2018-03-12] MEDS ORDERED: FERR-51 PO (12:42)
== END 2018-03-12 13:18 | disposition home or self-care (01) | DRG 871 ==
LOC: ED 16:52 → SUATTDRO 19:22 → 5SO 19:54 → CCU 02-27 04:26 → 5SO 03-01 20:05 → 4WST 03-05 13:25
PROVIDERS: ADMIT Hospitalist; ATTEND Hospitalist
PROC: 5A1D70Z Performance of Urinary Filtration, Intermittent, Less than 6 Hours Per Day (ICD-10-PCS; 2018-02-27)
PROC: 02H633Z Insertion of Infusion Device into Right Atrium, Percutaneous Approach (ICD-10-PCS; 2018-02-28)
PROC: B244ZZZ Ultrasonography of Right Heart (ICD-10-PCS; 2018-02-28)
PROC: 5A1D70Z Performance of Urinary Filtration, Intermittent, Less than 6 Hours Per Day (ICD-10-PCS; 2018-02-28)
PROC: 5A1D70Z Performance of Urinary Filtration, Intermittent, Less than 6 Hours Per Day (ICD-10-PCS; 2018-03-01)
PROC: 0DB98ZX Excision of Duodenum, Via Natural or Artificial Opening Endoscopic, Diagnostic (ICD-10-PCS; 2018-03-01)
PROC: 0DB68ZX Excision of Stomach, Via Natural or Artificial Opening Endoscopic, Diagnostic (ICD-10-PCS; 2018-03-01)
PROC: 5A1D70Z Performance of Urinary Filtration, Intermittent, Less than 6 Hours Per Day (ICD-10-PCS; 2018-03-02)
PROC: 5A1D70Z Performance of Urinary Filtration, Intermittent, Less than 6 Hours Per Day (ICD-10-PCS; 2018-03-04)
PROC: 5A1D70Z Performance of Urinary Filtration, Intermittent, Less than 6 Hours Per Day (ICD-10-PCS; 2018-03-05)
PROC: 5A1D70Z Performance of Urinary Filtration, Intermittent, Less than 6 Hours Per Day (ICD-10-PCS; 2018-03-06)
PROC: 5A1D70Z Performance of Urinary Filtration, Intermittent, Less than 6 Hours Per Day (ICD-10-PCS; 2018-03-07)
PROC: 5A1D70Z Performance of Urinary Filtration, Intermittent, Less than 6 Hours Per Day (ICD-10-PCS; 2018-03-08)
PROC: 02HV33Z Insertion of Infusion Device into Superior Vena Cava, Percutaneous Approach (ICD-10-PCS; principal; 2018-03-09)
PROC: B5181ZA Fluoroscopy of Superior Vena Cava using Low Osmolar Contrast, Guidance (ICD-10-PCS; 2018-03-09)
PROC: B548ZZA Ultrasonography of Superior Vena Cava, Guidance (ICD-10-PCS; 2018-03-09)
PROC: 5A1D70Z Performance of Urinary Filtration, Intermittent, Less than 6 Hours Per Day (ICD-10-PCS; 2018-03-09)
PROC: 5A1D70Z Performance of Urinary Filtration, Intermittent, Less than 6 Hours Per Day (ICD-10-PCS; 2018-03-11)
DX: A41.9 Sepsis, unspecified organism (principal); I21.4 Non-ST elevation (NSTEMI) myocardial infarction; N18.6 End stage renal disease; R57.8 Other shock; K25.4 Chronic or unspecified gastric ulcer with hemorrhage; I13.11 Hypertensive heart and chronic kidney disease without heart failure, with stage 5 chronic kidney disease, or end stage renal disease; E87.1 Hypo-osmolality and hyponatremia; I12.0 Hypertensive chronic kidney disease with stage 5 chronic kidney disease or end stage renal disease; M46.22 Osteomyelitis of vertebra, cervical region; Q21.1 Atrial septal defect; B18.2 Chronic viral hepatitis C; D63.8 Anemia in other chronic diseases classified elsewhere; E11.21 Type 2 diabetes mellitus with diabetic nephropathy; K31.7 Polyp of stomach and duodenum; I95.9 Hypotension, unspecified; D69.6 Thrombocytopenia, unspecified; E11.22 Type 2 diabetes mellitus with diabetic chronic kidney disease; E11.69 Type 2 diabetes mellitus with other specified complication; E78.5 Hyperlipidemia, unspecified; E87.5 Hyperkalemia; E87.70 Fluid overload, unspecified; I25.2 Old myocardial infarction; I27.20 Pulmonary hypertension, unspecified; I48.2 Chronic atrial fibrillation; M46.42 Discitis, unspecified, cervical region; N25.0 Renal osteodystrophy; Z79.82 Long term (current) use of aspirin; Z79.899 Other long term (current) drug therapy; Z80.0 Family history of malignant neoplasm of digestive organs; Z95.2 Presence of prosthetic heart valve; Z99.2 Dependence on renal dialysis; Z88.5 Allergy status to narcotic agent
CPT/HCPCS: 0399T; 36415; 36569; 71045; 71275; 72141; 72142; 76937; 77001; 78452; 80053; 80061; 80069; 80202; 82306; 82533; 82728; 83540; 83550; 83605; 83735; 83880; 83970; 84100; 84145; 84484; 84550; 85025; 85610; 85651; 85730; 86140; 86677; 86704; 86706; 86803; 86850; 86900; 87040; 87081; 87340; 87521; 88305; 93005; 93017; 93306; 93970; 96360; A9585; G0378; J0696; J0882; J1335; J1756; J2250; J2704; J2785; J3010; J3370; Q9967; A9502; C1751; C9113; C9898; J7030; J7040; J7050

== ENCOUNTER 2018-03-21 05:53 | Inpatient (IN) | payer MEDICARE ==
[~2018-03-21] VITALS: Ht 175.3 cm; Wt 104.0 kg
[~2018-03-21 05:53] MED LIST changes: +AMLO-150 PO; -AMLO5TAB7 PO; +ASPI-515 PO; -ASPI-621 PO; +ASPI81TA45 PO; +CEPH-368 PO; +CYAN500T18 PO; +FERR-51 PO; +LEVO500T8 PO; +LORA10TA3 PO; +MIDO10TA PO; +OMEP20TA62 PO; +PANT40TA5 PO; +VANC1PLA17 IV
[2018-03-21] MEDS ORDERED: SODIUM CHLORIDE FLUSH 10ML SYR IVF ONE (06:30)
[2018-03-21 06:56] LABS: INTERNATIONAL NORMALIZED RATIO 1.3 (0.93-1.1); PROTHROMBIN TIME 13.6 Seconds (9.6-11.5)
[2018-03-21 06:58] LABS: ALANINE AMINOTRANSFERASE 20 U/L (12-78); ALBUMIN 3.2 g/dL (3.4-5.0); ANION GAP 10 mmol/L (5-15); CALCIUM 8.5 mg/dL (8.5-10.1); CHLORIDE 95 mmol/L (98-107)
[2018-03-21 07:00] LABS: ALKALINE PHOSPHATASE 128 U/L (45-117); BILIRUBIN,TOTAL 0.6 mg/dL (0.2-1.0); TOTAL PROTEIN 7.3 g/dL (6.4-8.2)
[2018-03-21 07:04] LABS: MEAN CORPUSCULAR HEMOGLOBIN 31.4 pg (27.5-34.5); MEAN CORPUSCULAR HGB CONC 32.6 g/dL (33.2-36.2); MEAN CORPUSCULAR VOLUME 96.3 fL (81-97); MEAN PLATELET VOLUME 8.1 fL (7.4-10.4); PLATELET COUNT 131 x10^3/uL (130-400); RED BLOOD COUNT 3.17 x10^6/uL (4.38-5.82); RED CELL DISTRIBUTION WIDTH 25.4 % (9.4-14.8)
[2018-03-21] MEDS ORDERED: PANTOPRAZOLE 80 MG in SODIUM CHLORIDE 0.9% 50 ML IVPB ONE (07:06)
[2018-03-21 07:13] LABS: BASOPHILS # (AUTO) 0.04 x10^3/uL (0-0.1); BASOPHILS % (AUTO) 1 % (0-1); EOSINOPHILS # (AUTO) 0.12 x10^3/uL (0-0.4); EOSINOPHILS % (AUTO) 2 % (1-7); LYMPHOCYTES % (AUTO) 12 % (22-44); MD SCAN; MONOCYTES # (AUTO) 0.49 x10^3/uL (0.2-0.8); MONOCYTES % (AUTO) 9 % (2-9); NEUTROPHILS # (AUTO) 4.33 x10^3/uL (1.8-6.8); NEUTROPHILS % (AUTO) 76 % (42-75)
[2018-03-21] MEDS ORDERED: MIDODRINE 5 MG TABLET PO SCH (08:30)
[2018-03-21] MEDS ORDERED: CEFTRIAXONE 1,000 MG in SODIUM CHLORIDE 0.9% 50 ML IVPB ONE (08:30)
[2018-03-21] MEDS ORDERED: CEFTRIAXONE PMX 1GM/50ML 50 ML IV SCH (08:30)
[2018-03-21] MEDS ORDERED: AZITHROMYCIN 500 MG in SODIUM CHLORIDE 0.9% 250 ML IVPB ONE (08:30)
[2018-03-21] MEDS ORDERED: SODIUM CHLORIDE 0.9% 1,000ML IVBOLUS ONE (09:00)
[2018-03-21] MEDS ORDERED: VANCOMYCIN PER PHARMACY MC PRN (09:30)
[2018-03-21] MEDS ORDERED: HYDROcodone/APAP 10/325 MG TABLET PO PRN (09:30)
[2018-03-21] MEDS ORDERED: ONDANSETRON ODT 4 MG PO PRN (09:30)
[2018-03-21] MEDS ORDERED: LEVOFLOXACIN 500 MG TABLET PO SCH (09:30)
[2018-03-21] MEDS ORDERED: BISACODYL 10 MG SUPP PR PRN (09:30)
[2018-03-21] MEDS ORDERED: DOCUSATE 100 MG CAPSULE PO PRN (09:30)
[2018-03-21] MEDS ORDERED: ACETAMINOPHEN 325 MG TABLET PO PRN (09:30)
[2018-03-21] MEDS ORDERED: ONDANSETRON 2MG/ML, 2ML IVPush PRN (09:30)
[2018-03-21] MEDS ORDERED: POLYETHYLENE GLYCOL 17 GM PACKET PO PRN (09:30)
[2018-03-21] MEDS ORDERED: VANCOMYCIN 1,600 MG in SODIUM CHLORIDE 0.9% 250 ML IV SCH (10:30)
[2018-03-21] MEDS ORDERED: PHARMACOKINETIC CONSULTATION MC ONE (10:30)
[2018-03-21] MEDS ORDERED: PHARMACOKINETIC MONITORING MC PRN (10:30)
[2018-03-21 10:52] VITALS: BP 74/45
[2018-03-21 10:55] LABS: HCT (SEDRATE) 30.3 % (39.2-51.8)
[2018-03-21] MEDS ORDERED: SODIUM CHLORIDE 0.9% 500 ML IV SCH (11:00)
[2018-03-21 11:23] VITALS: BP 80/53
[2018-03-21] MEDS ORDERED: SEVELAMER CARBONATE 800MG TAB PO SCH (12:00)
[2018-03-21 13:28] VITALS: BP 83/56
[2018-03-21] MEDS ORDERED: SIMVASTATIN 20 MG TABLET PO SCH (21:00)
[2018-03-21] MEDS ORDERED: FERROUS SULFATE 325 MG TABLET PO SCH (21:00)
[2018-03-21] MEDS ORDERED: GABAPENTIN 300 MG CAPSULE PO SCH (21:00)
[2018-03-21] MEDS ORDERED: PANTOPRAZOLE 40 MG IV IVPush SCH (21:00)
[2018-03-22] MEDS ORDERED: CYANOCOBALAMIN 1,000 MCG TABLET PO SCH (09:00)
[2018-03-22] MEDS ORDERED: MULTIVITAMIN 1 TABLET PO SCH (09:00)
[2018-03-22] MEDS ORDERED: LORATADINE 10 MG TABLET PO SCH (09:00)
[2018-03-22] MEDS ORDERED: CINACALCET 30 MG TABLET PO SCH (09:00)
== END 2018-03-21 14:00 | disposition left against medical advice (07) | DRG 377 ==
LOC: ED 07:24 → EDIP 08:08 → 4EST 10:01
PROVIDERS: ADMIT Hospitalist; ATTEND Hospitalist
DX: K27.4 Chronic or unspecified peptic ulcer, site unspecified, with hemorrhage (principal); J15.9 Unspecified bacterial pneumonia; N18.6 End stage renal disease; D62 Acute posthemorrhagic anemia; K62.5 Hemorrhage of anus and rectum; I27.20 Pulmonary hypertension, unspecified; B18.2 Chronic viral hepatitis C; E11.22 Type 2 diabetes mellitus with diabetic chronic kidney disease; E11.69 Type 2 diabetes mellitus with other specified complication; I48.91 Unspecified atrial fibrillation; E78.5 Hyperlipidemia, unspecified; D63.8 Anemia in other chronic diseases classified elsewhere; Z53.21 Procedure and treatment not carried out due to patient leaving prior to being seen by health care provider; I35.1 Nonrheumatic aortic (valve) insufficiency; M46.42 Discitis, unspecified, cervical region; I95.89 Other hypotension; E87.70 Fluid overload, unspecified; Z88.5 Allergy status to narcotic agent; I25.2 Old myocardial infarction; Z99.2 Dependence on renal dialysis; Z87.11 Personal history of peptic ulcer disease; Z95.3 Presence of xenogenic heart valve; Z79.2 Long term (current) use of antibiotics
CPT/HCPCS: 36415; 71045; 80053; 80202; 82140; 82533; 83605; 84145; 85014; 85018; 85025; 85610; 85651; 85730; 86140; 86850; 86900; 87040; 93005; 96365; 99285; G0378; C9113; J7030; J7040